=== PATIENT | female | born 1935 | race Caucasian/White ===

== ENCOUNTER 2017-08-31 07:41 | Day surgery (SDC) | payer MEDICARE ==
[2017-08-31] MEDS: NS 1,000 ML IV (08:10)
[2017-08-31] MEDS ORDERED: LIDOCAINE 2% INJ 100 MG/5 ML SDV (FOR ANES.) As Ordered (08:54)
[2017-08-31] MEDS ORDERED: PROPOFOL 200 MG/20 ML VIAL As Ordered (08:54)
== END 2017-08-31 09:41 | disposition home or self-care (01) ==
LOC: M OPP 07:41
DX: R13.10 Dysphagia, unspecified (principal); I10 Essential (primary) hypertension; E78.5 Hyperlipidemia, unspecified; R63.4 Abnormal weight loss; R06.02 Shortness of breath; M19.90 Unspecified osteoarthritis, unspecified site; Z87.09 Personal history of other diseases of the respiratory system; Z90.2 Acquired absence of lung [part of]; Z79.82 Long term (current) use of aspirin; Z79.899 Other long term (current) drug therapy; Z87.891 Personal history of nicotine dependence
CPT/HCPCS: 43249

== ENCOUNTER → 2017-09-02 | Outpatient (REF) ==
[2017-09-03 14:57] LABS: RUBELLA IgG QUALITATIVE IMMUNE (IMMUNE)
== END ==
LOC: M LAB 14:41
DX: Z00.00 Encounter for general adult medical examination without abnormal findings (principal)

== ENCOUNTER → 2018-09-12 | Outpatient (REF) | payer MEDICARE ==
[~2018-09-12] MED LIST: ATEN25TA PO; BACT800T5 PO; BAYE325T12 PO; CO-QCAP PO; LIPI20TA PO; LOSA25TA14 PO; VITACAP8 PO
[2018-09-12 13:07] LABS: BASO # 0.1 10^3/uL (0.0-0.2); BASO % 0.7 % (0.0-1.0); EOS # 0.4 10^3/uL (0.0-0.50); HEMATOCRIT 38.5 % (36.0-47.0); HEMOGLOBIN 12.4 g/dl (12.0-15.5); LYMPH # 2.5 10^3/uL (1.5-4.5); LYMPH % 33.5 % (24.0-44.0); MEAN CORPUSCULAR HGB CONC 32.2 g/dl (32.0-36.5); MEAN CORPUSCULAR VOLUME 93.2 fl (80.0-96.0); MONO # 0.6 10^3/uL (0.0-0.8); MONO % 8.4 % (0.0-5.0); NEUTROPHILS % 52.1 % (36.0-66.0); PLATELET COUNT, AUTOMATED 252 10^3/uL (150-450); RED BLOOD COUNT 4.13 10^6/uL (4.00-5.40); WHITE BLOOD COUNT 7.6 10^3/uL (4.0-10.0)
[2018-09-12 13:14] LABS: ALBUMIN 3.9 GM/DL (3.2-5.2); ALT/SGPT 22 U/L (12-78); BILIRUBIN,TOTAL 0.4 MG/DL (0.2-1.0); BLOOD UREA NITROGEN 15 MG/DL (7-18); CARBON DIOXIDE LEVEL 28 MEQ/L (21-32); CHLORIDE LEVEL 104 MEQ/L (98-107); CREATININE FOR GFR 0.74 MG/DL (0.55-1.30); GLOMERULAR FILTRATION RATE > 60.0 (>32); GLUCOSE, FASTING 123 MG/DL (70-100); POTASSIUM SERUM 4.3 MEQ/L (3.5-5.1); RHEUMATOID FACTOR QUANT < 10.0 IU/ML (<15.0); SODIUM LEVEL 139 MEQ/L (136-145); TOTAL PROTEIN 6.7 GM/DL (6.4-8.2)
[2018-09-12 13:20] LABS: VITAMIN B12 LEVEL 354 PG/ML (247-911)
[2018-09-12 13:21] LABS: FOLATE 13.1 NG/ML (>5.4)
[2018-09-12 14:18] LABS: ERYTHROCYTE SEDIMENTATION RATE 44 mm/hr (0-30)
[2018-09-13 14:13] LABS: ANTINUCLEAR ANTIBODIES DIRECT Negative (Negative)
[2018-09-15 10:13] LABS: VITAMIN E(ALPHA TOCOPHEROL) 20.7 mg/L (9.0-29.0); VITAMIN E(GAMMA TOCOPHEROL) 3.5 mg/L (0.5-4.9)
== END ==
LOC: M LABNEURO 09:12
PROVIDERS: ATTEND Psychiatry & Neurology Neurology
DX: R41.82 Altered mental status, unspecified (principal); R47.81 Slurred speech

== ENCOUNTER → 2018-11-16 | Outpatient (REF) | payer MEDICARE ==
[2018-11-16 13:32] LABS: WHITE BLOOD COUNT 10.6 10^3/uL (4.0-10.0)
[2018-11-16 13:33] LABS: BASO # 0.1 10^3/uL (0.0-0.2); BASO % 0.6 % (0.0-1.0); EOS # 0.1 10^3/uL (0.0-0.50); EOS % 1.3 % (0.0-3.0); HEMATOCRIT 38.3 % (36.0-47.0); HEMOGLOBIN 12.4 g/dl (12.0-15.5); LYMPH # 2.7 10^3/uL (1.5-4.5); LYMPH % 25.4 % (24.0-44.0); MEAN CORPUSCULAR HEMOGLOBIN 29.6 pg (27.0-33.0); MEAN CORPUSCULAR HGB CONC 32.4 g/dl (32.0-36.5); MEAN CORPUSCULAR VOLUME 91.4 fl (80.0-96.0); MONO # 1.1 10^3/uL (0.0-0.8); MONO % 10.3 % (0.0-5.0); NEUTROPHILS # 6.6 10^3/uL (1.8-7.7); NEUTROPHILS % 62.1 % (36.0-66.0); PLATELET COUNT, AUTOMATED 247 10^3/uL (150-450); RED BLOOD COUNT 4.19 10^6/uL (4.00-5.40)
[2018-11-16 13:44] LABS: C REACTIVE PROTEIN QUANTITATIV 3.05 MG/DL (0.00-0.30); RHEUMATOID FACTOR QUANT < 10.0 IU/ML (<15.0)
[2018-11-16 14:01] LABS: ERYTHROCYTE SEDIMENTATION RATE 52 mm/hr (0-30)
[2018-11-22 14:24] LABS: ANTINUCLEAR ANTIBODIES DIRECT Negative (Negative); HLA-B27 Negative (.)
== END ==
LOC: M LABDRAW1 13:14
PROVIDERS: ATTEND Physician Assistant
DX: M25.521 Pain in right elbow (principal)

== ENCOUNTER → 2018-11-22 | Outpatient (REF) | payer MEDICARE ==
[2018-11-22 17:22] LABS: BASO % 0.3 % (0.0-1.0); EOS # 0.2 10^3/uL (0.0-0.50); EOS % 1.8 % (0.0-3.0); HEMOGLOBIN 12.2 g/dl (12.0-15.5); LYMPH # 2.3 10^3/uL (1.5-4.5); LYMPH % 24.9 % (24.0-44.0); MEAN CORPUSCULAR HEMOGLOBIN 29.9 pg (27.0-33.0); MEAN CORPUSCULAR VOLUME 90.7 fl (80.0-96.0); MONO # 0.8 10^3/uL (0.0-0.8); MONO % 8.7 % (0.0-5.0); NEUTROPHILS # 5.9 10^3/uL (1.8-7.7); PLATELET COUNT, AUTOMATED 325 10^3/uL (150-450); RED BLOOD COUNT 4.08 10^6/uL (4.00-5.40); WHITE BLOOD COUNT 9.3 10^3/uL (4.0-10.0)
[2018-11-22 17:46] LABS: ERYTHROCYTE SEDIMENTATION RATE 74 mm/hr (0-30)
[2018-11-22 18:44] LABS: C REACTIVE PROTEIN QUANTITATIV 2.53 MG/DL (0.00-0.30); URIC ACID 5.4 MG/DL (2.6-6.0)
[2018-11-25 00:07] LABS: Lyme Disease IgG/IgM Antibodie <0.91 ISR (0.00-0.90); Lyme Disease IgM Ab Quantitati <0.80 index (0.00-0.79)
== END ==
LOC: M LABDRAW1 16:25
PROVIDERS: ATTEND Physician Assistant
DX: M19.021 Primary osteoarthritis, right elbow (principal)

== ENCOUNTER 2019-01-21 16:05 | Observation (INO) | payer MEDICARE ==
[~2019-01-21] VITALS: Ht 160 cm; Wt 58.5 kg
[2019-01-21] MEDS ORDERED: SULF1TAB93 PO (16:12)
[2019-01-21] MEDS ORDERED: LOSA50TA88 PO (16:12)
[2019-01-21 17:22] LABS: BASO % 0.3 % (0.0-1.0); EOS % 0.1 % (0.0-3.0); HEMATOCRIT 37.8 % (36.0-47.0); HEMOGLOBIN 12.7 g/dl (12.0-15.5); LYMPH # 0.4 10^3/uL (1.5-5.0); LYMPH % 3.3 % (24.0-44.0); MEAN CORPUSCULAR HEMOGLOBIN 30.9 pg (27.0-33.0); MEAN CORPUSCULAR HGB CONC 33.6 g/dl (32.0-36.5); MONO # 0.4 10^3/uL (0.0-0.8); MONO % 3.8 % (0.0-5.0); NEUTROPHILS # 10.6 10^3/uL (1.5-8.5); PLATELET COUNT, AUTOMATED 213 10^3/uL (150-450); RED BLOOD COUNT 4.11 10^6/uL (4.00-5.40); WHITE BLOOD COUNT 11.5 10^3/uL (4.0-10.0)
[2019-01-21] MEDS ORDERED: ONDANSETRON 4MG/2ML VIAL (J2405) IV ONE (17:30)
[2019-01-21] MEDS ORDERED: NS 500 ML IV ONE (17:30)
[2019-01-21 17:41] LABS: ALBUMIN 3.5 GM/DL (3.2-5.2); BILIRUBIN,DIRECT 0.1 MG/DL (0.0-0.2); BILIRUBIN,TOTAL 0.4 MG/DL (0.2-1.0); CALCIUM LEVEL 8.9 MG/DL (8.8-10.2); CREATININE FOR GFR 1.02 MG/DL (0.55-1.30); POTASSIUM SERUM 3.9 MEQ/L (3.5-5.1); TOTAL PROTEIN 7.1 GM/DL (6.4-8.2)
[2019-01-21] MEDS ORDERED: CIPROFLOXACIN 250 MG TAB PO SCH (18:00)
[2019-01-21] MEDS ORDERED: ACETAMINOPHEN 325 MG TAB PO ONE (19:15)
[2019-01-21] MEDS ORDERED: cefTRIAXone SOD 1 GM in D5W MINI-BAG PLUS 50 ML IV ONE (19:30)
--- NOTE | 2019-01-21 19:59 | HPEPDOC ---
[facility] Medical History & Physical Date of Admission Jan 21, 2019 Date of Service: Jan 21, 2019 Primary Care Physician: Kian Solomon MD Attending Physician: TERESE ALMODOVAR MD History and Physical TIME OF SERVICE: 810pm CHIEF COMPLAINT: Vomiting HISTORY OF PRESENT ILLNESS: This is an 83 old female with a past medical history of bladder suspension surgery. One week ago she was diagnosed with a UTI and got a 3 day course of ciprofloxacin, which she feels "didn't help". Yesterday she saw her PCP who started on Bactrim after taking the medication and her other medications last night she vomited. She continued to vomit this morning, so she came into the ED for evaluation. Other symptoms include nonradiating lower back "ache" which she reports is 4/10 in severity, fevers and chills despite taking Tylenol. This is a third episode of urinary tract infection since May; in May she was septic and admitted to the ICU at a hospital in [place]. Her discussion with the ED provider she received Ceftriaxone and IV fluids in the ED. REVIEW OF SYSTEMS: 12 point review of systems negative except as listed in HPI PAST MEDICAL/ SURGICAL HISTORY: Chronic hypertension. Dyslipidemia. Arthritis. Disposition discharged to ia. Status post pneumonectomy. Status post bladder suspension surgery. Status post tonsillectomy and adenoidectomy. SOCIAL HISTORY: Former smoker. Independent in ADLs and IADLs. Is a retired nurse FAMILY HISTORY: Hypertension Aortic valve repair Ablation to treat arrhythmia. Hyperthyroidism ALLERGIES: Please see below. HOME MEDICATIONS: Please see below. PHYSICAL EXAMINATION: VITAL SIGNS: Please see below. GENERAL APPEARANCE: Well-nourished, well-developed, not in apparent distress HEENT: Normocephalic, atraumatic, mucous members moist and pink CARDIOVASCULAR: Regular rate and rhythm. No murmurs, rubs or gallops. Radial and dorsalis pedis pulses are intact, there is no lower extremity edema LUNGS: Clear to auscultation bilaterally on room air ABDOMEN: Bowel sounds hypoactive. Abdomen is soft and nontender on palpation MUSCULOSKELETAL: There is no CVA tenderness, range of motion intact in all 4 extremities INTEGUMENT: NEUROLOGICAL: Cranial nerves II-12 are grossly intact. Speech is not dysarthric PSYCHIATRIC: Alert and oriented to person, place and time, able to understand and follow commands LABORATORY DATA: See below. IMAGING: See below MICROBIOLOGY: Please see below. ASSESSMENT: Ms. Rubio is an 83 year old female with a past medical history of bladder suspension surgery, hypertension and dyslipidemia who will be admitted for management of pyelonephritis. PLAN: 1. Pyelonephritis -Symptoms include back pain, vomiting, and fever -Temp >103 -lactic acid >1.9 -UA positive for leukocyte esterase and WBCs - GFR, Cr & BUN within normal limits Plan: admit to PCU / telemetry / received Ceftriaxone IV,depending on how the patient is doing the daytime team may switch to PO Cipro tomorrow / f/u blood cx, UA w Cx 2. Chronic Hypertension Plan: Continue home meds DVT Px w lovenox Disposition pending clinical course Vital Signs Vital Signs Date Time Temp Pulse Resp B/P (MAP) Pulse Ox O2 Delivery O2 Flow Rate FiO2 01/21/19 19:08 103.0 86 16 139/56 (83) 97 Room Air Laboratory Data Labs 24H Laboratory Tests 2 01/21/19 17:12: Immature Granulocyte % (Auto) 0.5, White Blood Count 11.5H, Red Blood Count 4.11, Hemoglobin 12.7, Hematocrit 37.8, Mean Corpuscular Volume 92.0, Mean Corpuscular Hemoglobin 30.9, Mean Corpuscular Hemoglobin Concent 33.6, Red Cell Distribution Width 14.1, Platelet Count 213, Neutrophils (%) (Auto) 92.0H, Lymphocytes (%) (Auto) 3.3L, Monocytes (%) (Auto) 3.8, Eosinophils (%) (Auto) 0.1, Basophils (%) (Auto) 0.3, Neutrophils # (Auto) 10.6H, Lymphocytes # (Auto) 0.4L, Monocytes # (Auto) 0.4, Eosinophils # (Auto) 0.0, Basophils # (Auto) 0.0, Nucleated Red Blood Cells % (auto) 0.0, Anion Gap 10, Glomerular Filtration Rate 55.0, Lactic Acid Level 1.9, Calcium Level 8.9, Aspartate Amino Transf (AST/SGOT) 15, Alanine Aminotransferase (ALT/SGPT) 14, Alkaline Phosphatase 63, Total Bilirubin 0.4, Direct Bilirubin 0.1, Total Protein 7.1, Albumin 3.5, Albumin/Globulin Ratio 0.97L 01/21/19 18:24: Urine Color YELLOW, Urine Appearance HAZY, Urine pH 5.0, Urine Specific [place] 1.014, Urine Protein 2+H, Urine Glucose (UA) NEGATIVE, Urine Ketones NEGATIVE, Urine Blood 1+H, Urine Nitrite NEGATIVE, Urine Bilirubin NEGATIVE, Urine Urobilinogen 0.2, Urine Leukocyte Esterase 2+H, Urine WBC (Auto) 53H, Urine RBC (Auto) 5H, Urine Hyaline Casts (Auto) 0, Urine Bacteria (Auto) 1+H, Urine Squamous Epithelial Cells 0, Urine Mucus (Auto) SMALL, Urine Sperm (Auto) CBC/BMP Laboratory Tests 01/21/19 17:12 Red Blood Count 4.11, Mean Corpuscular Volume 92.0, Mean Corpuscular Hemoglobin 30.9, Mean Corpuscular Hemoglobin Concent 33.6, Red Cell Distribution Width 14.1, Neutrophils (%) (Auto) 92.0 H, Lymphocytes (%) (Auto) 3.3 L, Monocytes (%) (Auto) 3.8, Eosinophils (%) (Auto) 0.1, Basophils (%) (Auto) 0.3, Neutrophils # (Auto) 10.6 H, Lymphocytes # (Auto) 0.4 L, Monocytes # (Auto) 0.4, Eosinophils # (Auto) 0.0, Basophils # (Auto) 0.0 Microbiology Microbiology 01/21/19 Blood Culture, Received Pending 01/21/19 Blood Culture, Received Pending 01/21/19 Urine Culture, Received Pending Home Medications Scheduled Atenolol (Atenolol) 25 Mg Tab, 25 MG PO QHS Atorvastatin Calcium (Lipitor) 20 Mg Tab, 20 MG PO DAILY Losartan Potassium (Losartan Potassium) 50 Mg Tablet, 50 MG PO QHS Sulfamethoxazole/Trimethoprim (Sulfamethoxazole-Tmp Ds Tablet) 1 Each Tablet, 1 TAB PO BID Ubidecarenone (Co Q10) 200 Mg Capsule, 200 MG PO DAILY Scheduled PRN Aspirin (Aspirin) 325 Mg Tab, 650 MG PO TID PRN for pain Allergies Coded Allergies: No Known Allergies (Unverified , 01/21/19) A-FIB/CHADSVASC A-FIB History Current/History of A-Fib/PAF?: No Current PO Anticoag Therapy: No TERESE ALMODOVAR MD Jan 21, 2019 19:59
[2019-01-21] MEDS ORDERED: COQ1200C3 PO (20:11)
[2019-01-21 21:00] VITALS: BP 105/51
[2019-01-21] MEDS ORDERED: ATENOLOL 25 MG TAB PO SCH (21:00)
[2019-01-21] MEDS ORDERED: LOSARTAN 50 MG TAB PO SCH (21:00)
[2019-01-21] MEDS ORDERED: CIPROFLOXACIN 500 MG TAB PO SCH (21:00)
[2019-01-21] MEDS ORDERED: ASPIRIN 325 MG TAB PO PRN (21:15)
[2019-01-21 22:43] VITALS: BP 105/51
[2019-01-21] MEDS: ENOXAPARIN 40 MG/0.4 ML SYRINGE (J1650) SC SCH (23:27)
[2019-01-21] MEDS: NS 1,000 ML IV SCH (23:27)
[2019-01-22] VITALS (10 sets, daily range): BP systolic 74–170; BP diastolic 38–72
[2019-01-22] MEDS: IBUPROFEN 400 MG TAB PO PRN ×2 (00:45→15:02)
[2019-01-22] MEDS ORDERED: cefTRIAXone SOD 1 GM in D5W MINI-BAG PLUS 50 ML IV SCH (08:00)
[2019-01-22] MEDS: ACETAMINOPHEN 650MG ER TAB (TYLENOL ARTHRITIS) PO SCH ×2 (08:24→20:42)
[2019-01-22 09:15] LABS: HEMATOCRIT 36.2 % (36.0-47.0); HEMOGLOBIN 11.7 g/dl (12.0-15.5); MEAN CORPUSCULAR HEMOGLOBIN 30.4 pg (27.0-33.0); MEAN CORPUSCULAR HGB CONC 32.3 g/dl (32.0-36.5); PLATELET COUNT, AUTOMATED 181 10^3/uL (150-450); RED BLOOD COUNT 3.85 10^6/uL (4.00-5.40)
[2019-01-22 09:37] LABS: CALCIUM LEVEL 7.9 MG/DL (8.8-10.2); CREATININE FOR GFR 1.41 MG/DL (0.55-1.30); GLOMERULAR FILTRATION RATE 37.8 (>32); POTASSIUM SERUM 3.8 MEQ/L (3.5-5.1)
--- NOTE | 2019-01-22 10:52 | IPNPDOC ---
Subjective Date Seen The patient was seen on 01/22/19. Subjective Chief Complaint/HPI Patient offers no new complaints at the present time, had chills last night but her symptoms today General: Reports: Chills; Denies: ROS Unobtainable, Night Sweats, Fatigue, Malaise, Normal Appetite, Other Symptoms Constitutional: Denies: Chills, Fever, Malaise, Night Sweats, Weakness, Fatigue, Weight Loss, Lethargy, Other Eyes: Denies: Pain, Vision change, Conjunctivae inflammation, Eyelid inflammation, Redness, Other ENT: Denies: Head Aches, Ear Pain, Dysphagia, Sinus Congestion, Post Nasal Drip, Sore Throat, Epistaxis, Other Symptoms Skin: Denies: Rash, Lesions, Jaundice, Bruising, Itching, Dry, Breakdown, Nail Changes, Other Pulmonary: Denies: Dyspnea, Cough, Pleuritic Chest Pain, Other Symptoms Cardiovascular: Denies: Chest Pain, Palpitations, Orthopnea, Paroxysmal Noc. Dyspnea, Edema, Lt Headedness, Other Symptoms Gastrointestinal: Denies: Nausea, Vomiting, Abdominal Pain, Diarrhea, Constipation, Melena, Hematochezia, Other Symptoms Neurological: Denies: Weakness, Numbness, Incoordination, Change in speech, Confusion, Seizures, Other Symptoms Objective Physical Examination General Exam: Positive: Alert, Cooperative Eye Exam: Positive: PERRLA, Conjunctiva & lids normal ENT Exam: Positive: Atraumatic, Mucous membr. moist/pink Neck Exam: Positive: Supple Chest Exam: Positive: Clear to auscultation, Normal air movement Abdomen Exam: Positive: Normal bowel sounds, Soft Extremity Exam: Positive: Normal pulses Skin Exam: Positive: Nl turgor and temperature Assessment /Plan Problems (1) UTI (urinary tract infection) Status: Acute Problem Text: 83 years old lady admitted with the diagnosis of UTI Continue IV fluids at 70 mL per hour Continue Cipro as per orders Urine cultures pending Activity as tolerated DC telemetry Out of bed DVT prophylaxis with Lovenox (2) HTN (hypertension) Problem Text: Hold antihypertensive meds secondary to low blood pressure Will restart meds, once patient is clinically stable Plan/VTE VTE Prophylaxis Ordered?: Yes VS, I&O, 24H, Fishbone Vital Signs/I&O Vital Signs Date Time Temp Pulse Resp B/P (MAP) Pulse Ox O2 Delivery O2 Flow Rate FiO2 01/22/19 08:00 99.6 57 16 138/61 (86) 97 01/21/19 22:25 Room Air I&O- Last 24 Hours up to 6 AM 01/22/19 05:59 Intake Total 600 ml Balance 600 ml Laboratory Data 24H LABS Laboratory Tests 2 01/21/19 17:12: Immature Granulocyte % (Auto) 0.5, White Blood Count 11.5H, Red Blood Count 4.11, Hemoglobin 12.7, Hematocrit 37.8, Mean Corpuscular Volume 92.0, Mean Corpuscular Hemoglobin 30.9, Mean Corpuscular Hemoglobin Concent 33.6, Red Cell Distribution Width 14.1, Platelet Count 213, Neutrophils (%) (Auto) 92.0H, Lymphocytes (%) (Auto) 3.3L, Monocytes (%) (Auto) 3.8, Eosinophils (%) (Auto) 0.1, Basophils (%) (Auto) 0.3, Neutrophils # (Auto) 10.6H, Lymphocytes # (Auto) 0.4L, Monocytes # (Auto) 0.4, Eosinophils # (Auto) 0.0, Basophils # (Auto) 0.0, Nucleated Red Blood Cells % (auto) 0.0, Anion Gap 10, Glomerular Filtration Rate 55.0, Lactic Acid Level 1.9, Calcium Level 8.9, Aspartate Amino Transf (AST/ SGOT) 15, Alanine Aminotransferase (ALT/SGPT) 14, Alkaline Phosphatase 63, Total Bilirubin 0.4, Direct Bilirubin 0.1, Total Protein 7.1, Albumin 3.5, Albumin/Globulin Ratio 0.97L 01/21/19 18:24: Urine Color YELLOW, Urine Appearance HAZY, Urine pH 5.0, Urine Specific [place] 1.014, Urine Protein 2+H, Urine Glucose (UA) NEGATIVE, Urine Ketones NEGATIVE, Urine Blood 1+H, Urine Nitrite NEGATIVE, Urine Bilirubin NEGATIVE, Urine Urobilinogen 0.2, Urine Leukocyte Esterase 2+H, Urine WBC (Auto) 53H, Urine RBC (Auto) 5H, Urine Hyaline Casts (Auto) 0, Urine Bacteria (Auto) 1+H, Urine Squamous Epithelial Cells 0, Urine Mucus (Auto) SMALL, Urine Sperm (Auto) 01/22/19 05:45: Bedside Glucose (Misc Panel) 135H 01/22/19 08:42: Nucleated Red Blood Cells % (auto) 0.0, Anion Gap 13, Glomerular Filtration Rate 37.8, Calcium Level 7.9L, Blood Urea Nitrogen 25#H, Creatinine 1.41H, Sodium Level 139, Potassium Level 3.8, Chloride Level 104, Carbon Dioxide Level 22 CBC/BMP Laboratory Tests 01/21/19 17:12 Red Blood Count 4.11, Mean Corpuscular Volume 92.0, Mean Corpuscular Hemoglobin 30.9, Mean Corpuscular Hemoglobin Concent 33.6, Red Cell Distribution Width 14.1, Neutrophils (%) (Auto) 92.0 H, Lymphocytes (%) (Auto) 3.3 L, Monocytes (%) (Auto) 3.8, Eosinophils (%) (Auto) 0.1, Basophils (%) (Auto) 0.3, Neutrophils # (Auto) 10.6 H, Lymphocytes # (Auto) 0.4 L, Monocytes # (Auto) 0.4, Eosinophils # (Auto) 0.0, Basophils # (Auto) 0.0 01/22/19 08:42 Red Blood Count 3.85 L, Mean Corpuscular Volume 94.0, Mean Corpuscular Hemoglobin 30.4, Mean Corpuscular Hemoglobin Concent 32.3, Red Cell Distribution Width 14.5, Calcium Level 7.9 L Microbiology Microbiology 01/21/19 Blood Culture, Received Pending 01/21/19 Blood Culture, Received Pending 01/21/19 Urine Culture, Received Pending MELISSA SANCHEZ MD Jan 22, 2019 10:52
[2019-01-22] MEDS: NS 1,000 ML IV SCH (13:11)
[2019-01-22] MEDS: OMEPRAZOLE 20 MG CAP PO SCH (18:09)
[2019-01-22] MEDS: ENOXAPARIN 40 MG/0.4 ML SYRINGE (J1650) SC SCH (20:45)
[2019-01-23] MEDS: NS 1,000 ML IV SCH (01:51)
[2019-01-23 03:00] VITALS: BP 111/72
[2019-01-23] MEDS: IBUPROFEN 400 MG TAB PO PRN (03:01)
[2019-01-23 04:00] VITALS: BP 111/53
[2019-01-23 05:49] LABS: BASO % 0.2 % (0.0-1.0); EOS # 0.1 10^3/uL (0.0-0.5); EOS % 2.1 % (0.0-3.0); HEMATOCRIT 33.5 % (36.0-47.0); HEMOGLOBIN 10.9 g/dl (12.0-15.5); LYMPH # 0.4 10^3/uL (1.5-5.0); LYMPH % 7.7 % (24.0-44.0); MEAN CORPUSCULAR HEMOGLOBIN 30.4 pg (27.0-33.0); MEAN CORPUSCULAR HGB CONC 32.5 g/dl (32.0-36.5); MEAN CORPUSCULAR VOLUME 93.3 fl (80.0-96.0); MONO # 0.2 10^3/uL (0.0-0.8); MONO % 4.4 % (0.0-5.0); NEUTROPHILS # 4.4 10^3/uL (1.5-8.5); NEUTROPHILS % 84.8 % (36.0-66.0); PLATELET COUNT, AUTOMATED 141 10^3/uL (150-450); RED BLOOD COUNT 3.59 10^6/uL (4.00-5.40); WHITE BLOOD COUNT 5.2 10^3/uL (4.0-10.0)
[2019-01-23 06:18] LABS: ALBUMIN 2.5 GM/DL (3.2-5.2); BILIRUBIN,TOTAL 0.4 MG/DL (0.2-1.0); CALCIUM LEVEL 7.9 MG/DL (8.8-10.2); CREATININE FOR GFR 1.06 MG/DL (0.55-1.30); GLOMERULAR FILTRATION RATE 52.6 (>32); POTASSIUM SERUM 3.4 MEQ/L (3.5-5.1); TOTAL PROTEIN 5.7 GM/DL (6.4-8.2)
[2019-01-23] MEDS ORDERED: POTASSIUM CHLORIDE 10 MEQ SR TABLET PO ONE (07:30)
[2019-01-23 08:00] VITALS: BP 125/60
[2019-01-23] MEDS ORDERED: cefTRIAXone SOD 1 GM in D5W MINI-BAG PLUS 50 ML IV SCH (08:00)
[2019-01-23] MEDS: ACETAMINOPHEN 650MG ER TAB (TYLENOL ARTHRITIS) PO SCH (08:09)
[2019-01-23] MEDS: OMEPRAZOLE 20 MG CAP PO SCH (08:09)
[2019-01-23] MEDS ORDERED: OMEP-218 PO (09:55)
[2019-01-23] MEDS ORDERED: CEFU1TAB20 PO (09:55)
--- NOTE | 2019-01-23 10:00 | DS.PDOC ---
Discharge Summary General Date of Admission Jan 21, 2019 at 16:06 Date of Discharge 01/23/19 Attending Physician: MELISSA SANCHEZ MD Discharge Summary PROCEDURES PERFORMED DURING STAY: None. ADMITTING DIAGNOSES: 1. UTI. DISCHARGE DIAGNOSES: 1. UTI, hypokalemia. COMPLICATIONS/CHIEF COMPLAINT: Sepsis/Uti. HISTORY OF PRESENT ILLNESS: This is an 83 old female with a past medical history of bladder suspension surgery. One week ago she was diagnosed with a UTI and got a 3 day course of ciprofloxacin, which she feels "didn't help". Yesterday she saw her PCP who started on Bactrim after taking the medication and her other medications last night she vomited. She continued to vomit this morning, so she came into the ED for evaluation. Other symptoms include nonradiating lower back "ache" which she reports is 4/10 in severity, fevers and chills despite taking Tylenol. This is a third episode of urinary tract infection since May; in May she was septic and admitted to the ICU at a hospital in [place]. Her discussion with the ED provider she received Ceftriaxone and IV fluids in the ED.. HOSPITAL COURSE: Patient was admitted diagnosis of UTI. Started on IV Rocephin. Patient remained afebrile, asymptomatic, tolerating oral feeding very well. WBC count is essentially within normal limit, now patient's vital signs are stable and can be discharged home on a by mouth cephalexin and follow with PCP and urology Dr. Young as an outpatient in 7-10 days for recurrent UTI. Hypokalemia was also was corrected with by mouth supplementation Continue all ho me medications. DISCHARGE MEDICATIONS: Please see below. ALLERGIES: Please see below. PHYSICAL EXAMINATION ON DISCHARGE: VITAL SIGNS: Please see below. GENERAL: Within normal limits HEENT: PERRLA NECK: Supple CARDIOVASCULAR EXAMINATION: S1, S2, regular RESPIRATORY EXAMINATION: Clear to A&P ABDOMINAL EXAMINATION: , Soft, nontender, bowel sound present EXTREMITIES: no clubbing, cyanosis, edema SKIN: Within normal limits NEUROLOGICAL EXAMINATION: Within normal limits PSYCHIATRIC EXAMINATION: Within normal limits LABORATORY DATA: Please see below. IMAGING: None PROGNOSIS: Good ACTIVITY: As tolerated. DIET: As tolerated DISCHARGE PLAN: Follow with PCP and urology in 7-10 days DISPOSITION: .home DISCHARGE INSTRUCTIONS: 1. As per discharge instruction. ITEMS TO FOLLOWUP ON ON OUTPATIENT: 1. As above. DISCHARGE CONDITION: Stable. TIME SPENT ON DISCHARGE: minutes. Vital Signs/I&Os Vital Signs Date Time Temp Pulse Resp B/P (MAP) Pulse Ox O2 Delivery O2 Flow Rate FiO2 01/23/19 08:00 97.2 86 17 125/60 (81) 98 01/21/19 22:25 Room Air I&O- Last 24 Hours up to 6 AM 01/23/19 05:59 Intake Total 940 ml Output Total 0 ml Balance 940 ml Laboratory Data Labs 24H Laboratory Tests 2 01/23/19 03:19: Bedside Glucose (Misc Panel) 111H 01/23/19 05:36: Immature Granulocyte % (Auto) 0.8, White Blood Count 5.2, Red Blood Count 3.59L, Hemoglobin 10.9L, Hematocrit 33.5L, Mean Corpuscular Volume 93.3, Mean Corpuscular Hemoglobin 30.4, Mean Corpuscular Hemoglobin Concent 32.5, Red Cell Distribution Width 14.5, Platelet Count 141L, Neutrophils (%) (Auto) 84.8H, Lymphocytes (%) (Auto) 7.7L, Monocytes (%) (Auto) 4.4, Eosinophils (%) (Auto) 2.1, Basophils (%) (Auto) 0.2, Neutrophils # (Auto) 4.4, Lymphocytes # (Auto) 0.4L, Monocytes # (Auto) 0.2, Eosinophils # (Auto) 0.1, Basophils # (Auto) 0.0, Nucleated Red Blood Cells % (auto) 0.0, Anion Gap 9, Glomerular Filtration Rate 52.6, Blood Urea Nitrogen 31H, Creatinine 1.06, Sodium Level 143, Potassium Level 3.4L, Chloride Level 113H, Carbon Dioxide Level 21, Calcium Level 7.9L, Aspartate Amino Transf (AST/SGOT) 41H, Alanine Aminotransferase (ALT/SGPT) 26, Alkaline Phosphatase 86, Total Bilirubin 0.4, Total Protein 5.7L, Albumin 2.5#L, Albumin/Globulin Ratio 0.78L CBC/BMP Laboratory Tests 01/23/19 05:36 Red Blood Count 3.59 L, Mean Corpuscular Volume 93.3, Mean Corpuscular Hemoglobin 30.4, Mean Corpuscular Hemoglobin Concent 32.5, Red Cell Distribution Width 14.5, Neutrophils (%) (Auto) 84.8 H, Lymphocytes (%) (Auto) 7.7 L, Monocytes (%) (Auto) 4.4, Eosinophils (%) (Auto) 2.1, Basophils (%) (Auto) 0.2, Neutrophils # (Auto) 4.4, Lymphocytes # (Auto) 0.4 L, Monocytes # (Auto) 0.2, Eosinophils # (Auto) 0.1, Basophils # (Auto) 0.0, Calcium Level 7.9 L, Aspartate Amino Transf (AST/SGOT) 41 H, Alanine Aminotransferase (ALT/SGPT) 26, Alkaline Phosphatase 86, Total Bilirubin 0.4, Total Protein 5.7 L, Albumin 2.5 #L FSBS Laboratory Tests Test 01/23/19 03:19 Range/Units Bedside Glucose (Misc Panel) 111 83-110 MG/DL Microbiology Microbiology 01/21/19 Blood Culture - Preliminary, Resulted No growth after 24 hours . All specim... 01/21/19 Blood Culture - Preliminary, Resulted No growth after 24 hours . All specim... 01/21/19 Urine Culture - Final, Complete Discharge Medications Scheduled Atenolol (Atenolol) 25 Mg Tab, 25 MG PO QHS, (Reported) Atorvastatin Calcium (Lipitor) 20 Mg Tab, 20 MG PO DAILY, (Reported) Cefuroxime Axetil (Cefuroxime) 250 Mg Tablet, 250 MG PO BID Losartan Potassium (Losartan Potassium) 50 Mg Tablet, 50 MG PO QHS, (Reported) Omeprazole (Omeprazole) 20 Mg Capsule.dr, 40 MG PO DAILY Ubidecarenone (Co Q10) 200 Mg Capsule, 200 MG PO DAILY, (Reported) Scheduled PRN Aspirin (Aspirin) 325 Mg Tab, 650 MG PO TID PRN for pain, (Reported) Allergies Coded Allergies: No Known Allergies (Unverified , 01/21/19) MELISSA SANCHEZ MD Jan 23, 2019 10:00
== END 2019-01-23 12:07 | disposition home or self-care (01) ==
LOC: M ED 16:05 → M ED INP 16:06 → M PED 19:55 → M ED INP 21:43 → M PCU 22:38
PROVIDERS: ADMIT Internal Medicine; ATTEND Internal Medicine
DX: N39.0 Urinary tract infection, site not specified (principal); E87.6 Hypokalemia; I10 Essential (primary) hypertension; E78.49 Other hyperlipidemia; Z79.899 Other long term (current) drug therapy; Z87.891 Personal history of nicotine dependence
CPT/HCPCS: 36415; 80048; 80053; 80076; 81001; 83605; 85025; 85027; 87040; 87086; 99285; G0378; J0696; J1650; J2405

== ENCOUNTER 2019-01-27 09:01 | Inpatient (IN) | payer MEDICARE ==
[~2019-01-27] VITALS: Ht 160 cm; Wt 56.8 kg
[~2019-01-27 09:01] MED LIST changes: -ACET1TAB16 PO; -AMLO10TA5 PO; -OMEP-221 PO; -PT COMMENTS; -SENN-52 PO
[2019-01-27] MEDS ORDERED: SULF1TAB93 PO (09:15)
[2019-01-27] MEDS ORDERED: ACET1TAB16 PO (09:15)
[2019-01-27] MEDS ORDERED: MORPHINE 2 MG/ML 1ML SYRINGE (J2270) IV ONE ×2 (09:45→11:30)
[2019-01-27] MEDS ORDERED: ONDANSETRON 4MG/2ML VIAL (J2405) IV ONE (09:45)
[2019-01-27 10:44] LABS: BASO % 0.2 % (0.0-1.0); EOS # 0.2 10^3/uL (0.0-0.5); EOS % 2.5 % (0.0-3.0); HEMATOCRIT 34.5 % (36.0-47.0); HEMOGLOBIN 11.7 g/dl (12.0-15.5); LYMPH % 10.4 % (24.0-44.0); MEAN CORPUSCULAR HEMOGLOBIN 30.5 pg (27.0-33.0); MEAN CORPUSCULAR HGB CONC 33.9 g/dl (32.0-36.5); MEAN CORPUSCULAR VOLUME 90.1 fl (80.0-96.0); MONO # 0.6 10^3/uL (0.0-0.8); MONO % 5.7 % (0.0-5.0); NEUTROPHILS # 7.7 10^3/uL (1.5-8.5); NEUTROPHILS % 80.5 % (36.0-66.0); PLATELET COUNT, AUTOMATED 264 10^3/uL (150-450); RED BLOOD COUNT 3.83 10^6/uL (4.00-5.40); WHITE BLOOD COUNT 9.6 10^3/uL (4.0-10.0)
[2019-01-27 11:22] LABS: ALBUMIN 3.4 GM/DL (3.2-5.2); ALT/SGPT 30 U/L (12-78); BILIRUBIN,DIRECT < 0.1 MG/DL (0.0-0.2); BILIRUBIN,TOTAL 0.3 MG/DL (0.2-1.0); BLOOD UREA NITROGEN 12 MG/DL (7-18); CALCIUM LEVEL 9.1 MG/DL (8.8-10.2); CARBON DIOXIDE LEVEL 25 MEQ/L (21-32); CHLORIDE LEVEL 105 MEQ/L (98-107); CPK CREATINE PHOSPHOKINASE 87 U/L (26-192); CREATININE FOR GFR 0.77 MG/DL (0.55-1.30); GLOMERULAR FILTRATION RATE > 60.0 (>32); GLUCOSE, FASTING 192 MG/DL (70-100); LIPASE 315 U/L (73-393); POTASSIUM SERUM 4.1 MEQ/L (3.5-5.1); SODIUM LEVEL 141 MEQ/L (136-145); TOTAL PROTEIN 6.5 GM/DL (6.4-8.2); TROPONIN I < 0.02 NG/ML (< 0.10)
[2019-01-27] MEDS ORDERED: ISOVUE-370 76% 100ML VIAL (Q9967) As Ordered ONE (11:30)
[2019-01-27] MEDS: NS 1,000 ML IV SCH ×2 (11:34→18:51)
--- NOTE | 2019-01-27 12:05 | REP ---
CHEST, TWO VIEWS: COMPARISON: 07/05/2012 There is no acute infiltrate. There is mild bibasilar scaring and left apical pleural thickening. Metallic clips are seen in the left hilum. The heart is not enlarged. There is calcification and tortuosity of the thoracic aorta. There is are degenerative changes of the spine. IMPRESSION: Stable chronic changes. No acute infiltrate. Electronically Signed by Vince Willis MD 01/27/2019 12:21 P
--- NOTE | 2019-01-27 12:33 | REP ---
CT ANGIOGRAPHY OF THE ABDOMEN AND PELVIS WITH IV CONTRAST: HISTORY: Workup left flank pain, UPJ. Rule out vascular crossing compressing urinary collecting system components. No comparison abdominal imaging. CT CONTRAST DOSE: 100 mL of intravenous Isovue 370. CT FINDINGS: Preliminary digital director of scout work radiograph is unremarkable. Normal bowel gas pattern is seen. The lung bases are clear with emphysematous changes in the lower lobes bilaterally. No pleural effusion is seen. The liver and spleen are normal in size, homogeneous in texture. There is a small accessory splenule. No adrenal lesion is seen on either side. Gallbladder is somewhat dilated without evidence of stone or mural thickening. It measures up to 10.3 cm in greatest dimension. The intra and extrahepatic bile ducts are mildly prominent as well. Common bile duct measures 12 mm in greatest anteroposterior dimension. No pancreatic mass or a choledocholith is visible by CT imaging. No pancreatic cyst is seen. The pancreatic duct is not dilated. There is pancolonic diverticulosis without CT evidence of diverticulitis. The uterus is surgically absent. Urinary bladder is unremarkable. A normal appendix is seen in the right mid abdomen. Small and large bowel loops are normal in caliber. No pelvic mass or adenopathy is seen. There is moderate hydronephrosis of the left kidney with intrarenal hydronephrosis and dilation of the renal pelvis. The renal pelvis and ureteropelvic junction have a rounded appearance without evidence of stone or mass. 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 The renal arteries describe a normal course and bifurcation pattern into the left kidney without evidence of vascular compression at the ureteropelvic junction. Normal caliber aorta is seen. There is heavy vascular calcification in the aorta and diffuse aortoiliac narrowing is seen due to calcific plaquing. No high-grade stenosis is evident. There is atherosclerotic calcific plaquing at the origin of both the celiac and superior mesenteric axes, however no high-grade stenosis is seen. The inferior mesenteric artery is patent. Singular renal arteries are seen. There is evidence of high-grade stenosis at the origin of the right renal artery best seen on axial images. IMPRESSION: 1. 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 No evidence of vascular compression of the renal collecting system or ureteropelvic junction. No stone disease seen. 2. Dilated gallbladder and mildly dilated intra and extrahepatic bile ducts, CBD 12 mm. Etiology uncertain. No stone or mass seen by CT. 3. Diffuse heavy vascular calcification in the aorta and its branches. Significant stenosis at the origin of the right renal artery is seen. Diffuse aortoiliac narrowing due to calcific plaquing. 4. Pancolonic diverticulosis. Electronically Signed by Vincent Mendoza MD 01/27/2019 02:40 P
[2019-01-27] MEDS ORDERED: LIDOCAINE 5% (LIDODERM) PATCH TD ONE (13:15)
[2019-01-27] MEDS ORDERED: ACETAMINOPHEN TAB 650MG DOSE (2X325MG) PO ONE (14:30)
[2019-01-27] MEDS ORDERED: CYCLOBENZAPRINE 5MG TABLET PO ONE (14:30)
[2019-01-27] MEDS ORDERED: OMEP-221 PO (15:50)
[2019-01-27] MEDS ORDERED: PT COMMENTS (15:50)
[2019-01-27] MEDS ORDERED: MORPHINE 4 MG/ML 1ML VIAL/SYRINGE (J2270) IV PRN (16:00)
--- NOTE | 2019-01-27 16:21 | HPE ---
DATE OF ADMISSION: 01/27/2019 PRIMARY CARE PROVIDER: Dr. Kian Solomon CHIEF COMPLAINT: Intractable left flank pain with left radiculopathy and left extensor hallucis longus weakness. 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 Her urine cultures were negative, but she was diagnosed with pyelonephritis and discharged on Keflex. She has been having increasing left flank pain radiating to the left buttock and down to the back of the left knee for several weeks. She apparently had a urinary tract infection (UTI) and had sepsis, for which she was admitted to the intensive care unit (ICU) in [place] earlier this year. She saw her primary care provider who referred her to the urologist in [place], who wanted a MRA done today, but this could not be performed because she was so uncomfortable. She came to the emergency room. PAST MEDICAL HISTORY: 1. Hypertension. 2. Hyperlipidemia. 3. Arthritic low back pain. X-rays of lumbosacral spine that showed grade 1 spondylolisthesis of L3 on x-ray done in 01/2016. She reportedly had MRI of the lumbosacral spine done several years ago through Dr. Solomon's office, I do not have access to that. 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 No vascular compression of the renal collecting system. No stone present. She did have a dilated gallbladder and mildly dilated intra and extrahepatic bile duct. The common bile duct is 12 mm. Heavy calcification of the aorta and significant stenosis at the origin of the right renal artery, diffuse aortoiliac narrowing and pancolonic diverticulosis. Again, the UPJ obstruction appears to be congenital. There is no bowel or bladder dysfunction. No fever or chills. No frequency, urgency or dysuria. MEDICATIONS: - Tylenol with codeine as needed - aspirin 326 mg three times a day as needed - atenolol 25 mg - atorvastatin 20 mg - losartan 50 mg - omeprazole 40 mg daily - Bactrim every 12 hours - coenzyme Q10 ALLERGIES: None known. 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 No smoking. No alcohol. PHYSICAL EXAMINATION: Vital signs per flow sheet. She is alert and conversant. Speech is a little slurred from morphine but she recognized me immediately. No distress. HEENT: Unremarkable. LUNGS: Clear. HEART: Without murmur. ABDOMEN: Soft, nontender. No masses. EXTREMITIES: Straight leg raise positive on the left. Low talkback host to palpate. Left low back and tender left sciatic notch. Her external hallucis longus EHL is weak on the left compared to the right. Reflexes symmetric. Speech is normal. IMPRESSION: 1. Intractable flank pain. I think that this is discogenic and not urologic. The CT angiogram did not show any vascular compromise and the UPJ obstruction appears to be congenital. I have ordered a stat MRI of her lumbosacral spine and get a sed rate and ESR. Analgesia has been ordered. I also ordered some IV fluids as she had received IV contrast today. 2. Hypertension. Continue losartan. Keep an eye on renal function. 3. Hyperlipidemia. Continue atorvastatin. 4. Recent hospitalization for presumed urinary tract infection (UTI). Culture was negative. I think that this episode is not urinary and so I am not giving her an antibiotic for this, which as an infectious control nurse she appreciates. 5. Deep vein thrombosis (DVT) prophylaxis with Lovenox has been ordered.
[2019-01-27 18:20] VITALS: BP 164/74
[2019-01-27] MEDS: KETOROLAC 30 MG/ML VIAL (J1885) IV SCH (18:56)
--- NOTE | 2019-01-27 19:19 | REPVR ---
EXAM: MR Lumbar Spine Without Contrast. EXAM DATE/TIME: 01/27/2019 3:46 PM CLINICAL HISTORY: 83 years old, female; Pain; Lumbago with sciatica; Left; Additional info: Left radiculopathy, ehl weakness TECHNIQUE: Imaging protocol: Multiplanar magnetic resonance images of the lumbar spine without intravenous contrast. COMPARISON: CR SPINE LS COMPLETE 02/06/2016 5:03 PM FINDINGS: Vertebrae: There is no vertebral fracture. Vertebral bodies maintain their height. STIR images demonstrate no evidence of marrow edema or marrow infiltrating lesion. Spinal cord: The lower thoracic cord, conus and cauda equina are normal. L1-L2: There is a ventral osteophyte. There is a mild circumferential disc bulge. There is facet arthropathy with mild bilateral foraminal stenosis. L2-L3: Mild disc bulge. There is facet arthropathy with mild left and moderate right foraminal stenosis. No central stenosis. L3-L4: There is a mild disc bulge. There is advanced facet arthropathy with a grade 1 degenerative spondylolisthesis. There is hypertrophy of the ligamentum flavum. These factors result in moderate to severe central spinal stenosis. There is moderate foraminal stenosis. There is severe lateral recess stenosis. L4-L5: There is disc dehydration and disc space narrowing with a mild disc bulge. There is facet arthropathy with moderate right and more severe left foraminal and lateral recess stenosis. There is no central stenosis. L5-S1: Minimal disc bulge. Facet arthropathy with moderate right and more severe left foraminal and lateral recess stenosis. Kidneys and ureters: There is hydronephrosis noted on the left. This is incompletely visualized and etiology is not clear. This was reported on recent examination of the abdomen. Soft tissues: There is no paraspinous or intraspinal mass, hemorrhage or fluid collection. IMPRESSION: 1. No fracture. 2. Multilevel degenerative findings resulting in [id number] central stenosis at L3-L4. Additional degenerative findings. Electronically signed by: Wood Banuelos On 01/27/2019 19:19:22 PM
[2019-01-27] MEDS ORDERED: **NOTE PATIENT COMMENT** MISC XX SCH (21:00)
[2019-01-27 22:00] VITALS: BP 162/74
[2019-01-28] MEDS: NS 1,000 ML IV SCH ×2 (03:00→11:07)
[2019-01-28] MEDS: KETOROLAC 30 MG/ML VIAL (J1885) IV SCH ×3 (03:53→19:45)
--- NOTE | 2019-01-28 05:45 | ECGEPIP ---
[facility] - ED Test Date: 2019-01-27 Pat Name: AGUILAR MORENO Department: Room: - Gender: Female Installation Specialist: PMaP : [id number] Requested By: MITCHEL Mahmood PA-C Order Number: [id number] Reading MD: Milind Arriaga Measurements Intervals Stow Rate: 94 P: 59 HI: 134 QRS: 64 QRSD: 87 T: 44 QT: 380 QTc: 476 Interpretive Statements SINUS RHYTHM WITH OCCASIONAL VENTRICULAR PREMATURE COMPLEXES NONSPECIFIC ST & T-WAVE ABNORMALITY NO PRIORS FOR COMPARISON Electronically Signed on 01-28-2019 5:45:34 EDT by Milind Arriaga
[2019-01-28 06:00] VITALS: BP 150/78
[2019-01-28 06:41] LABS: BASO % 0.2 % (0.0-1.0); EOS # 0.2 10^3/uL (0.0-0.5); EOS % 1.4 % (0.0-3.0); HEMATOCRIT 29.5 % (36.0-47.0); LYMPH # 1.2 10^3/uL (1.5-5.0); LYMPH % 10.5 % (24.0-44.0); MEAN CORPUSCULAR HEMOGLOBIN 31.1 pg (27.0-33.0); MEAN CORPUSCULAR HGB CONC 33.9 g/dl (32.0-36.5); MEAN CORPUSCULAR VOLUME 91.6 fl (80.0-96.0); MONO # 0.8 10^3/uL (0.0-0.8); MONO % 6.9 % (0.0-5.0); NEUTROPHILS # 9.3 10^3/uL (1.5-8.5); NEUTROPHILS % 80.1 % (36.0-66.0); PLATELET COUNT, AUTOMATED 269 10^3/uL (150-450); RED BLOOD COUNT 3.22 10^6/uL (4.00-5.40); WHITE BLOOD COUNT 11.6 10^3/uL (4.0-10.0)
[2019-01-28 06:58] LABS: BLOOD UREA NITROGEN 9 MG/DL (7-18); CALCIUM LEVEL 7.9 MG/DL (8.8-10.2); CARBON DIOXIDE LEVEL 26 MEQ/L (21-32); CHLORIDE LEVEL 108 MEQ/L (98-107); CREATININE FOR GFR 0.72 MG/DL (0.55-1.30); GLOMERULAR FILTRATION RATE > 60.0 (>32); GLUCOSE, FASTING 141 MG/DL (70-100); POTASSIUM SERUM 3.4 MEQ/L (3.5-5.1); SODIUM LEVEL 141 MEQ/L (136-145)
[2019-01-28] MEDS: LOSARTAN 50 MG TAB PO SCH ×2 (08:23→11:57)
[2019-01-28] MEDS: PANTOPRAZOLE 20 MG TAB PO SCH ×2 (08:23→11:57)
[2019-01-28] MEDS: ATENOLOL 25 MG TAB PO SCH ×2 (08:23→11:59)
[2019-01-28] MEDS: ATORVASTATIN 20 MG TAB PO SCH ×2 (08:23→11:57)
[2019-01-28] MEDS: ENOXAPARIN 40 MG/0.4 ML SYRINGE (J1650) SC SCH (08:24)
[2019-01-28] MEDS ORDERED: BACTRIM 160MG/800MG DS TAB PO SCH (09:00)
[2019-01-28 10:00] VITALS: BP 135/62
[2019-01-28] MEDS ORDERED: SENOKOT S TAB PO PRN (12:00)
[2019-01-28] MEDS ORDERED: MIRALAX *UNIT DOSE* 17GM PACKET PO PRN (12:00)
[2019-01-28 14:00] VITALS: BP 147/72
[2019-01-28] MEDS: ONDANSETRON 4MG/2ML VIAL (J2405) IV PRN (16:17)
[2019-01-28 18:00] VITALS: BP 138/68
[2019-01-28 22:00] VITALS: BP 161/76
[2019-01-28] MEDS: KETOROLAC 30 MG/ML VIAL (J1885) IV PRN (22:39)
[2019-01-29 02:00] VITALS: BP 161/77
[2019-01-29 06:00] VITALS: BP 154/77
[2019-01-29 06:30] LABS: HEMOGLOBIN 10.9 g/dl (12.0-15.5); MEAN CORPUSCULAR HEMOGLOBIN 30.4 pg (27.0-33.0); MEAN CORPUSCULAR VOLUME 91.9 fl (80.0-96.0); PLATELET COUNT, AUTOMATED 364 10^3/uL (150-450); RED BLOOD COUNT 3.59 10^6/uL (4.00-5.40); WHITE BLOOD COUNT 17.5 10^3/uL (4.0-10.0)
[2019-01-29 06:55] LABS: BLOOD UREA NITROGEN 13 MG/DL (7-18); CALCIUM LEVEL 8.4 MG/DL (8.8-10.2); CARBON DIOXIDE LEVEL 21 MEQ/L (21-32); CHLORIDE LEVEL 105 MEQ/L (98-107); CREATININE FOR GFR 0.69 MG/DL (0.55-1.30); GLOMERULAR FILTRATION RATE > 60.0 (>32); GLUCOSE, FASTING 139 MG/DL (70-100); POTASSIUM SERUM 3.6 MEQ/L (3.5-5.1); SODIUM LEVEL 137 MEQ/L (136-145)
--- NOTE | 2019-01-29 07:45 | IPN ---
DATE: 01/28/2019 Kate was admitted with left flank pain that radiates to her left buttock down her left leg. She has extensor hallucis longus weakness consistent with a nerve impingement. This was confirmed by MRI scan which showed degenerative disc disease at multiple levels, specifically there is severe central spinal stenosis at L3-L4 with severe lateral recess stenosis and left greater than right foraminal and lateral recess stenosis with facet arthropathy at L4-L5 which is consistent with her left radiculopathy. She does have a left hydronephrosis for which I think is entirely unrelated to her current pain syndrome (not consistent with radiculopathy pain). She has a congenital left UPJ obstruction that her urologist in [place] plans to stent at some point. During this admission she had a CT angiogram that showed that there was no vascular structure causing this compression. Her pain is under better control though when doing a Valsalva maneuver while attempting to pass a bowel movement today she had recurrence of left radiculopathy pain radiating to her leg. PHYSICAL EXAMINATION: Afebrile. Vital signs are stable. 135/62. She is awake and in no distress. Lungs are clear. Abdomen soft and nontender. Straight-leg raising is positive on the left. Mild left EHL weakness. LABS: CBC white count 11.6, hemoglobin 10, sodium 141, potassium 3.4, electrolytes are unremarkable. IMPRESSION: 1. Left radiculopathy. She has finally received some pain control. Pain recurred during Valsalva maneuver which has put her back in bed. The plan is to keep her here over the weekend and get the pain clinic to see her on Wednesday for consideration some injections. She should see orthopedic surgery such as Dr. Leos at the [facility] as an outpatient after she is seen by pain management. 2. Left UPJ congenital obstruction. I think this is unrelated to her current pain symptoms and she has an outpatient urologist to see her for this. 3. Hypertension. Continue on atenolol and losartan. 4. Recent urinary tract injection, restart her Bactrim that she is taking as an outpatient. I held it yesterday because of a slight decline in renal function and exposure to IV dye yesterday with the angiogram. Renal function is now back to baseline. I have put the consult in for pain management but there is no way to reach them over the weekend, so the rounding team on Wednesday will have to call over to the pain clinic. 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 It was nice to get reacquainted with her.
[2019-01-29] MEDS: PANTOPRAZOLE 20 MG TAB PO SCH (09:14)
[2019-01-29] MEDS: ATORVASTATIN 20 MG TAB PO SCH (09:14)
[2019-01-29] MEDS: KETOROLAC 30 MG/ML VIAL (J1885) IV PRN ×2 (09:14→22:21)
[2019-01-29] MEDS: LOSARTAN 50 MG TAB PO SCH (09:16)
[2019-01-29] MEDS: ATENOLOL 25 MG TAB PO SCH (09:17)
[2019-01-29] MEDS: ENOXAPARIN 40 MG/0.4 ML SYRINGE (J1650) SC SCH (09:22)
[2019-01-29 10:00] VITALS: BP 152/64
[2019-01-29 14:00] VITALS: BP 158/82
[2019-01-29] MEDS ORDERED: BISACODYL 10 MG SUPP PR ONE (15:15)
[2019-01-29] MEDS: SIMETHICONE 80 MG CHEW TAB PO PRN ×2 (15:26→21:50)
[2019-01-29 18:00] VITALS: BP 160/78
--- NOTE | 2019-01-29 21:59 | IPNPDOC ---
Text Note Date of Service The patient was seen on 01/29/19. NOTE Subjective: -Nauseous -Has pain when she tries to get up -Is constipated and she thinks it is iatrogenic from the pain medication she is receiving -otherwise a great historian ROS: negative for fever, chills, hematuria Objective Vitals: as below General: NAD, pleasant, however is uncomfortable when she moves. Pulm: CTAB Cardiac: RRR, no mrg Abdomen: hypoactive bowel sounds, soft, non tender MSK: has pain with twisting to turn to back, straight-leg raise is positive on the left side. 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 Of note, she has a left hydronephrosis in the setting of a congenital left UPJ obstruction that her urologist in [place] plans to stent at some point. IMPRESSION: 1. Left radiculopathy. -consult pain clinic to see her on Wednesday for consideration some injections. -Refer to orthopedic surgery such as Dr. Leos at the [facility] as an outpatient after she is seen by pain management. -During this admission she had a CT angiogram that showed that there was no vascular structure causing this compression. 2. Left UPJ congenital obstruction. Likely unrelated to her current pain symptoms especially given the radicular nature of the pain. -Has an outpatient urologist to see her for this, will defer for now 3. Hypertension. Continue on atenolol and losartan. 4. Recent urinary tract infection, was on Bactrim as an outpatient. -was held it because of a slight decline in renal function and exposure to IV contrast with the angiogram. -Renal function is now back to baseline. -Need to investigate days on course, to restart likely tomorrow. 5. ConstipationL in the setting of pain medications -Sennakot -Miralax PRN -eventually had to give her a dulcolax suppository -added simethicone for bloating 6. Nausea: -Zofran PRN DVT prophylaxis: lovenox Diet: regular Dispo: pending pain consult RMEI,Sonia, I+O VS, Sonia, I+O Laboratory Tests 01/29/19 05:33 Red Blood Count 3.59 L, Mean Corpuscular Volume 91.9, Mean Corpuscular Hemoglobin 30.4, Mean Corpuscular Hemoglobin Concent 33.0, Red Cell Distribution Width 14.0, Calcium Level 8.4 L Vital Signs Date Time Temp Pulse Resp B/P (MAP) Pulse Ox O2 Delivery O2 Flow Rate FiO2 01/29/19 18:00 97.8 80 17 160/78 (105) 95 01/27/19 17:06 Room Air I&O- Last 24 Hours up to 6 AM 01/29/19 06:00 Intake Total 2140 ml Output Total 800 ml Balance 1340 ml NOMI BALDERAS MD Jan 29, 2019 21:59
[2019-01-29 22:00] VITALS: BP 154/82
[2019-01-29] MEDS: ONDANSETRON 4MG/2ML VIAL (J2405) IV PRN (22:19)
[2019-01-30 02:00] VITALS: BP 157/82
[2019-01-30] MEDS ORDERED: MAALOX 30 ML SUSP *UDC PO PRN (04:00)
[2019-01-30] MEDS ORDERED: METOCLOPRAMIDE 5 MG TAB PO PRN (04:00)
[2019-01-30] MEDS ORDERED: MAGNESIUM CITRATE 300 ML BTL PO ONE (05:00)
[2019-01-30] MEDS ORDERED: MOM 30ML SUSPENSION UDC PO PRN (05:00)
[2019-01-30] MEDS ORDERED: FLEET OIL RETENTION ENEMA PR PRN (05:00)
[2019-01-30 06:00] VITALS: BP 158/84
[2019-01-30 06:24] LABS: HEMATOCRIT 32.4 % (36.0-47.0); HEMOGLOBIN 10.8 g/dl (12.0-15.5); MEAN CORPUSCULAR HEMOGLOBIN 30.2 pg (27.0-33.0); MEAN CORPUSCULAR HGB CONC 33.3 g/dl (32.0-36.5); MEAN CORPUSCULAR VOLUME 90.5 fl (80.0-96.0); PLATELET COUNT, AUTOMATED 412 10^3/uL (150-450); RED BLOOD COUNT 3.58 10^6/uL (4.00-5.40); WHITE BLOOD COUNT 14.6 10^3/uL (4.0-10.0)
[2019-01-30 06:48] LABS: BLOOD UREA NITROGEN 14 MG/DL (7-18); CARBON DIOXIDE LEVEL 25 MEQ/L (21-32); CHLORIDE LEVEL 101 MEQ/L (98-107); CREATININE FOR GFR 0.65 MG/DL (0.55-1.30); GLOMERULAR FILTRATION RATE > 60.0 (>32); GLUCOSE, FASTING 164 MG/DL (70-100); POTASSIUM SERUM 3.7 MEQ/L (3.5-5.1); SODIUM LEVEL 135 MEQ/L (136-145)
[2019-01-30 10:00] VITALS: BP 159/80
[2019-01-30] MEDS: ENOXAPARIN 40 MG/0.4 ML SYRINGE (J1650) SC SCH (10:07)
[2019-01-30] MEDS: LOSARTAN 50 MG TAB PO SCH (10:07)
[2019-01-30] MEDS: ATORVASTATIN 20 MG TAB PO SCH (10:07)
[2019-01-30] MEDS: ATENOLOL 25 MG TAB PO SCH (10:08)
[2019-01-30] MEDS: PANTOPRAZOLE 20 MG TAB PO SCH (10:08)
[2019-01-30] MEDS: ONDANSETRON 4MG/2ML VIAL (J2405) IV PRN (13:20)
[2019-01-30 14:00] VITALS: BP 163/80
--- NOTE | 2019-01-30 16:29 | CR ---
DATE OF CONSULTATION: 01/30/2019 REFERRING PROVIDER: Dr. Farmer HISTORY OF PRESENT ILLNESS: Kate is an 83-year-old female who was admitted 3 days ago due to excruciating low back and leg pain and inability to walk. Pain is located across the lower back with radiation into the legs left greater than right. Admits to doing a lot of moving of furniture and golfing. Has never experienced acute episodes of back pain in the past. Today we reviewed her imaging studies and discussed treatment options. PHYSICAL EXAM: She is lying in bed but moves around easily. No significant discomfort noted. Vital signs are 97.9, 91, 18. BP was 163/80. Oxygen saturation is 92%. Cardiac: S1, S2, normal rate and rhythm. Respiratory: Lung sounds are clear. Respirations nonlabored. Neurologic exam - normal sensation to light touch upper and lower extremities. Muscle strength testing 5/5 bilaterally. Rises to a stand easily. No guarding. Inspection of spine - specific point tenderness noted over sacroiliac (SI) joints bilaterally. DIAGNOSTIC IMAGING: MRI of the lumbosacral (LS) spine 01/27/2019 reviewed. ASSESSMENT: 1. Sacroiliitis. 2. Lumbar spinal stenosis. PLAN: We will bring her to the pain center tomorrow, 01/31/2019, for bilateral sacroiliac joint (SIJ). Potential risks and benefits were reviewed with the patient. She will followup with Dr. Solomon upon discharge. Dr. Solomon may want her to see us for followup if her pain persists to discuss other treatment options. She will be nothing by mouth after breakfast tomorrow morning. May have clear liquids up until 12 noon. We will call for her around 2:30 p.m. to be transported to the pain center. Hold Lovenox tomorrow. Thank you for allowing us to participate in the care of your patient. If you have any questions or concerns, please do not hesitate to contact me. Sincerely, Suha Taylor, Family Nurse Practitioner, [facility] Center, [facility].
[2019-01-30 18:00] VITALS: BP 160/80
--- NOTE | 2019-01-30 20:15 | IPNPDOC ---
Text Note Date of Service The patient was seen on 01/30/19. NOTE Subjective: -Continues to be nauseous despite zofran with poor PO -Finally had a BM after multiple agents -Discussed fluid repletion but ultimately decided against IV fluids ROS: negative for fever, chills, hematuria Objective Vitals: as below General: NAD, pleasant, uncomfortable when she twists. Pulm: CTAB Cardiac: RRR, no mrg Abdomen: hypoactive bowel sounds, soft, non tender MSK: has pain with twisting to turn to back, straight-leg raise is positive on the left side. 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 Of note, she has a left hydronephrosis in the setting of a congenital left UPJ obstruction that her urologist in [place] plans to stent at some point. IMPRESSION: 1. Left radiculopathy. -consulted pain management, is due to go to the pain center tomorrow for assessment of bilateral sacroiliac joint (SIJ) and treatment -Dr. Farmer suggested a referral to orthopedic surgery such as Dr. Leos at the [facility] as an outpatient after she is seen by pain management and she also is considering a neurosurgeon in [place]. -During this admission she had a CT angiogram that showed that there was no vascular structure causing this compression. 2. Left UPJ congenital obstruction. Likely unrelated to her current pain symptoms especially given the radicular nature of the pain. -Has an outpatient urologist to see her for this, will defer for now 3. Hypertension. Continue on atenolol and losartan. 4. Recent urinary tract infection, was on Bactrim as an outpatient. -was held it because of a slight decline in renal function and exposure to IV contrast with the angiogram. -Renal function is now back to baseline. -Has no symptoms, and labs remain normal, will discontinue the bactrim altogether at this time. 5. Constipation in the setting of pain medications -Sennakot, Miralax PRN -simethicone for bloating 6. Nausea: -Zofran PRN DVT prophylaxis: lovenox Diet: regular Dispo: pending pain center assessment and treatment VS,Fishbone, I+O VS, Fishbone, I+O Laboratory Tests 01/30/19 05:49 Red Blood Count 3.58 L, Mean Corpuscular Volume 90.5, Mean Corpuscular Hemoglobin 30.2, Mean Corpuscular Hemoglobin Concent 33.3, Red Cell Distribution Width 13.9, Calcium Level 9.0 Vital Signs Date Time Temp Pulse Resp B/P (MAP) Pulse Ox O2 Delivery O2 Flow Rate FiO2 01/30/19 18:00 97.8 92 17 160/80 (106) 97 01/27/19 17:06 Room Air I&O- Last 24 Hours up to 6 AM 01/30/19 05:59 Intake Total 200 ml Output Total 650 ml Balance -450 ml NOMI BALDERAS MD Jan 30, 2019 20:15
[2019-01-30 22:00] VITALS: BP 152/74
[2019-01-30] MEDS: KETOROLAC 30 MG/ML VIAL (J1885) IV PRN (23:49)
[2019-01-31] VITALS (10 sets, daily range): BP systolic 118–155; BP diastolic 54–82
[2019-01-31] MEDS ORDERED: CYCLOBENZAPRINE 5MG TABLET PO ONE (05:45)
[2019-01-31 06:51] LABS: HEMATOCRIT 31.9 % (36.0-47.0); HEMOGLOBIN 10.6 g/dl (12.0-15.5); MEAN CORPUSCULAR HEMOGLOBIN 30.1 pg (27.0-33.0); MEAN CORPUSCULAR HGB CONC 33.2 g/dl (32.0-36.5); MEAN CORPUSCULAR VOLUME 90.6 fl (80.0-96.0); PLATELET COUNT, AUTOMATED 415 10^3/uL (150-450); RED BLOOD COUNT 3.52 10^6/uL (4.00-5.40); WHITE BLOOD COUNT 12.6 10^3/uL (4.0-10.0)
[2019-01-31 07:17] LABS: BLOOD UREA NITROGEN 13 MG/DL (7-18); CALCIUM LEVEL 8.8 MG/DL (8.8-10.2); CARBON DIOXIDE LEVEL 27 MEQ/L (21-32); CHLORIDE LEVEL 99 MEQ/L (98-107); CREATININE FOR GFR 0.66 MG/DL (0.55-1.30); GLOMERULAR FILTRATION RATE > 60.0 (>32); GLUCOSE, FASTING 126 MG/DL (70-100); POTASSIUM SERUM 3.8 MEQ/L (3.5-5.1); SODIUM LEVEL 135 MEQ/L (136-145)
[2019-01-31] MEDS: ATORVASTATIN 20 MG TAB PO SCH (09:42)
[2019-01-31] MEDS: PANTOPRAZOLE 20 MG TAB PO SCH (09:42)
[2019-01-31] MEDS: ATENOLOL 25 MG TAB PO SCH ×2 (09:43→21:00)
[2019-01-31] MEDS ORDERED: amLODIPine 10 MG TAB PO ONE (09:45)
[2019-01-31] MEDS: **hydrALAZINE** 10 MG TAB PO SCH ×3 (12:00→23:19)
[2019-01-31] MEDS ORDERED: diazePAM 5 MG TAB As Ordered ONE (14:51)
[2019-01-31] MEDS ORDERED: TRIAMCINOLONE ACETONIDE SUSP 40 MG/ML VIAL (J3301) As Ordered ONE (15:35)
[2019-01-31] MEDS ORDERED: LIDOCAINE 1% SDV INJ 30 ML VIAL As Ordered ONE (15:35)
[2019-01-31] MEDS ORDERED: ISOVUE-M 300 61% 15ML VIAL (Q9967) As Ordered ONE (15:35)
[2019-01-31] MEDS ORDERED: BUPIVACAINE HCL 0.25% 30 ML VIAL As Ordered ONE (15:35)
--- NOTE | 2019-01-31 16:02 | IPN ---
DATE: 01/31/2019 SUBJECTIVE: Complains of severe pain of the back. No lower extremity weakness. Rating the pain as 7/10 radiating down the leg. The patient denies any urine or bowel incontinence. Denies any weakness, able to ambulate around the room per nursing. Despite the patient's blood pressure ranging from 140 to 163 systolic, she denies any chest pain, pressure or tightness, headaches, changes in vision, shortness of breath, lightheaded or near syncope. OBJECTIVE/PHYSICAL EXAMINATION: VITAL SIGNS: Temperature 98.2, pulse 75, respiratory rate 16, blood pressure 145/80 to 162/74, 97% on room air. GENERAL: Patient is awake, alert and oriented times three, appears her stated age. No use of accessory respiratory muscles. HEENT: No jugular venous distention (JVD), thyromegaly, or cervical lymphadenopathy. LUNGS: Clear to auscultation. No wheezing or rales. HEART: S1, S2 sinus rhythm. ABDOMEN: Soft, nontender, nondistended. Positive bowel sounds. No rebound, guarding or hepatosplenomegaly. EXTREMITIES: No pitting edema. HOSPITAL MEDICATIONS: - Norvasc - Tylenol - hydralazine - fleet enema - Milk of Magnesia - Mylanta - Reglan - simethicone - Toradol - Zofran - MiraLAX - Senokot - Lipitor - Protonix - IV morphine LABORATORY DATA: White count 12.6, hemoglobin 10, hematocrit 31, platelet count 415. Sodium 134, potassium 3.8, chloride 99, bicarb 27, BUN 13, creatinine 0.62, glucose of 126. Lumbar spine MRI 01/27 no fracture, moderate to severe central stenosis at L3- L4. Degenerative findings. Chest x-ray 01/27 chronic changes. No acute infiltrate. CT chest congenital UPJ obstruction of the left, moderate left hydronephrosis. No vascular compression of the renal collecting system. No stone disease. Dilated gallbladder with mildly dilated intra and extra hepatic biliary ducts. CBD 12 mm. Etiology unknown. No stone or mass. Significant stenosis at the right renal artery. Diffuse aortoiliac narrowing due to calcific plaquing. Diffuse heavy vascular calcification of aorta and its branches. Pancolonic diverticulosis. ASSESSMENT/PLAN: This is an 83-year-old female with history of congenital UPJ junction and hydronephrosis followed by urologist as an outpatient, spinal stenosis, hypertension, recent UTI completed Bactrim as an outpatient, chronic constipation and nausea, who presented with weakness, unable to ambulate and severe pain found to have left radiculopathy. IMPRESSION: 1. Spinal stenosis L3-L4. Pain management service has been consulted for injections. The patient is kept on as needed medications with Toradol and intravenous morphine. Physical therapy has been consulted, which has been held due to plan for SI block at the pain management center. 2. Chronic UPJ obstruction with chronic mild hydronephrosis. Patient has normal creatinine and therefore will followup as an outpatient with her urologist. 3. Significant stenosis of the right renal artery. The patient's blood pressure ranges from 140 to 160. Will obtain renal ultrasound with Doppler. Vascular surgery referral if needed. Continue atenolol and hydralazine for blood pressure control and Norvasc. 4. Hypertension on atenolol, hydralazine and Norvasc for now. 5. Deep vein thrombosis (DVT) prophylaxis with compression stockings. [facility]
[2019-02-01 02:00] VITALS: BP 116/63
[2019-02-01] MEDS: **hydrALAZINE** 10 MG TAB PO SCH (05:53)
[2019-02-01 06:00] VITALS: BP 130/68
[2019-02-01 06:53] LABS: HEMATOCRIT 36.9 % (36.0-47.0); HEMOGLOBIN 12.3 g/dl (12.0-15.5); MEAN CORPUSCULAR HEMOGLOBIN 30.4 pg (27.0-33.0); MEAN CORPUSCULAR HGB CONC 33.3 g/dl (32.0-36.5); MEAN CORPUSCULAR VOLUME 91.1 fl (80.0-96.0); PLATELET COUNT, AUTOMATED 477 10^3/uL (150-450); RED BLOOD COUNT 4.05 10^6/uL (4.00-5.40); WHITE BLOOD COUNT 9.1 10^3/uL (4.0-10.0)
[2019-02-01 07:21] LABS: BLOOD UREA NITROGEN 18 MG/DL (7-18); CALCIUM LEVEL 8.9 MG/DL (8.8-10.2); CARBON DIOXIDE LEVEL 26 MEQ/L (21-32); CHLORIDE LEVEL 103 MEQ/L (98-107); CREATININE FOR GFR 0.82 MG/DL (0.55-1.30); GLOMERULAR FILTRATION RATE > 60.0 (>32); GLUCOSE, FASTING 213 MG/DL (70-100); POTASSIUM SERUM 3.8 MEQ/L (3.5-5.1); SODIUM LEVEL 139 MEQ/L (136-145)
[2019-02-01 09:00] VITALS: BP 130/60
[2019-02-01] MEDS: ATENOLOL 25 MG TAB PO SCH (09:00)
[2019-02-01] MEDS ORDERED: amLODIPine 10 MG TAB PO SCH (09:00)
[2019-02-01] MEDS: PANTOPRAZOLE 20 MG TAB PO SCH (09:31)
[2019-02-01] MEDS: ATORVASTATIN 20 MG TAB PO SCH (09:31)
--- NOTE | 2019-02-01 10:27 | IPN ---
DATE OF SERVICE: 02/01/2019 SUBJECTIVE: The patient denies any chest pain, pressure, or tightness, lightheadedness, or dizziness. Blood pressure has been well maintained at 116-136 systolic on Norvasc and atenolol. She currently is pain-free status post lumbar injections for the lumbar spine stenosis L3-L4 yesterday and feels normal today. She is currently nothing by mouth for renal artery stenosis workup with renal ultrasound with Doppler. OBJECTIVE/PHYSICAL EXAMINATION: VITAL SIGNS: Temperature 96.2, pulse 65, respiratory rate 16, blood pressure 130/68, 98% on room air. GENERALLY, awake, alert and oriented times three, answering questions appropriately. LUNGS: Are clear to auscultation. No wheezing, rales, or rhonchi. HEART: S1, S2 sinus rhythm. ABDOMEN: Soft, nontender, nondistended. Positive bowel sounds. EXTREMITIES: No clubbing, cyanosis, or pitting edema HOSPITAL MEDICATIONS: - Norvasc 10 daily- Tylenol 25 twice a day- hydralazine 10 mg every 6 hours- Fleet enema- mineral oil- milk of magnesia- Reglan- simethicone- Toradol- Zofran- MiraLAX- Senokot- Lipitor- Protonix- morphine ASSESSMENT AND PLAN: This is an 83-year-old female with renal artery stenosis, sma and celiac artery atherosclerotic disease, congenital ureteropelvic junction (UPJ) obstruction with chronic hydronephrosis follows with her urologist as outpatient, spinal stenosis, recently completed Bactrim for a UTI as outpatient, chronic constipation, presented with weakness, unable to ambulate, severe pain with left radiculopathy. ACUTE ISSUES: 1. Spinal stenosis L3-L4 with left radicular pain. Resolved. Pain management has been consulted for injection. Physical therapy (PT) cleared for home safety evaluation. 2. 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 Normal creatinine. Follows up with her urologist as outpatient. 3. High-grade stenosis right renal artery. The patient angiotensin receptor aleksander (ARB) has been discontinued. Currently on atenolol and Norvasc. Will discontinue hydralazine. Vascular surgery has been consulted. The patient to decide if she wants inpatient or outpatient workup. 4. Hypertension. Controlled on atenolol and Norvasc. Will discontinue hydralazine. 5. Deep vein thrombosis (DVT) prophylaxis. Compression stockings. DISPOSITION: Discharge if workup as outpatient for renal artery stenosis and passes home safety evaluation. MTDD
[2019-02-01] MEDS ORDERED: ATEN25TA PO (11:36)
[2019-02-01] MEDS ORDERED: SENN-52 PO (11:36)
[2019-02-01] MEDS ORDERED: AMLO10TA5 PO (11:36)
--- NOTE | 2019-02-01 12:29 | CR.PDOC ---
General Date of Consultation: Feb 01, [address] Mckoy HPI: 83year oldF admitted to [facility] with back pain. Vascular Surgery is consulted re JACKY. Denies pain currently and plan is for pt to be discharged later today. Denies any fevers, chills, weakness, fatigue, Headache, Chest Pain, Shortness of breath, cough, palpitations, abdominal pain, N/V/D or changes in bowel or bladder habits. PMHx: HTN HLD LBP/Lumbar SS GERD SOCHX: Tobacco use: denies ETOH: denies FAMHX: non contributory. ROS: As noted in HPI, otherwise 11pt ROS of systems reviewed and unremarkable. PE: GEN: yo, appears stated age. Well-nourished, well developed. No acute distress. Alert and oriented x 3. Pleasant, interactive. HEENT: Normocephalic, atraumatic. Pupils are equal, round, and reactive to light. Extraocular movements are intact. No nystagmus appreciated. Sclera are nonicteric. Conjunctiva without injection. Nose midline. Nasal turbinates without bogginess. EACs both patent BL. TMs both visualized and carbajal with good cone of light, no bulging or erythema. No facial asymmetry. Moist mucous membr anes. Dentition fair. Pharynx pink and moist, no cobblestoning. Neck supple, trachea midline. No lymphadenopathy or thyromegaly appreciated. CHEST: Regular rate and rhythm, +S1, +S2 LUNGS: Clear to auscultation bilaterally. No wheezes, rales, or rhonchi. Breathing appears symmetric and easy. Patient is speaking in full sentences. No accessory muscle use. ABD: Round, soft, non-tender, non-distended. +Bowel sounds throughout. No rebound or guarding. No costovertebral angle tenderness. EXT: Pulses 2+ bilaterally dorsalis pedis and radial. No lower extremity edema appreciated. SKIN: Peck, dry, warm. Capillary refill <2sec. No rashes. NEURO: Alert and oriented x 3. Cranial nerves III-XII are intact. No focal deficits appreciated. CTA A/P IMPRESSION: 1. 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 No evidence of vascular compression of the renal collecting system or ureteropelvic junction. No stone disease seen. 2. Dilated gallbladder and mildly dilated intra and extrahepatic bile ducts, CBD 12 mm. Etiology uncertain. No stone or mass seen by CT. 3. Diffuse heavy vascular calcification in the aorta and its branches. Significant stenosis at the origin of the right renal artery is seen. Diffuse aortoiliac narrowing due to calcific plaquing. 4. Pancolonic diverticulosis. Electronically Signed by Vincent Mendoza MD 01/27/2019 02:40 P Renal US pending. A&P: 1. JACKY. The pt is reviewed and examined as per Dr Mckoy. Imaging is reviewed by Dr Mckoy. Renal US pending at this time. SCr in noted to be WNL. HTN is controlled. BP 130/60. Continue with antihypertensives. Recommendation as per Dr Mckoy is for conservative mgmt. Would recommend outpt FU renal artery doppler for surveillance in 6 months with FU in office to review results. Vital Signs/I&O Vital Signs Date Time Temp Pulse Resp B/P (MAP) Pulse Ox O2 Delivery O2 Flow Rate FiO2 02/01/19 09:00 130/60 02/01/19 06:00 96.2 65 16 98 01/27/19 17:06 Room Air I&O- Last 24 Hours up to 6 AM 02/01/19 06:00 Intake Total 1300 ml Output Total 0 ml Balance 1300 ml Laboratory Data Labs 24H Laboratory Tests 2 02/01/19 06:32: Nucleated Red Blood Cells % (auto) 0.0, Anion Gap 10, Glomerular Filtration Rate > 60.0, Blood Urea Nitrogen 18, Creatinine 0.82, Sodium Level 139, Potassium Lev el 3.8, Chloride Level 103, Carbon Dioxide Level 26, Calcium Level 8.9 CBC/BMP Laboratory Tests 02/01/19 06:32 Red Blood Count 4.05, Mean Corpuscular Volume 91.1, Mean Corpuscular Hemoglobin 30.4, Mean Corpuscular Hemoglobin Concent 33.3, Red Cell Distribution Width 13.9, Calcium Level 8.9 Microbiology Microbiology 01/29/19 Urine Culture - Final, Complete Allergies Coded Allergies: No Known Allergies (Unverified , 01/27/19) Home Medications Scheduled Amlodipine Besylate (Amlodipine Besylate) 10 Mg Tablet, 10 MG PO DAILY for 30 Days, #30 Atenolol (Atenolol) 25 Mg Tablet, 25 MG PO BID for 30 Days, #60 Atorvastatin Calcium (Lipitor) 20 Mg Tab, 20 MG PO DAILY, (Reported) Omeprazole (Omeprazole) 40 Mg Capsule.dr, 40 MG PO DAILY, (Reported) Ubidecarenone (Co Q10) 200 Mg Capsule, 200 MG PO DAILY, (Reported) Scheduled PRN Acetaminophen with Codeine (Acetaminophen-Cod #3 Tablet) 1 Each Tablet, 1 TAB PO BID PRN for PAIN, (Reported) Sennosides/Docusate Sodium (Senna Plus Tablet) 1 Each Tablet, 1 TAB PO BIDP PRN for CONSTIPATION for 10 Days, #20 Miscellaneous Medications [Pt Comments] , (Reported) PCP TOLD PT. TO STOP ATENOLOL, ATORVASTATIN, LOSARTAN AND CO-Q10. SHE HASN'T TAKEN ANY OF THESE SINCE 01/24. Attending Note Attending Note VASCULAR SURGICAL ATTENDING NOTE: Dr. Kay Mckoy M.D. ASSESSMENT: Patient is an 83-year-old female who was found to have renal artery stenosis. Patient was initially admitted with flank pain on the left side and was found to have renal artery stenosis on the right after undergoing a CT angiogram. Patient has no difficulty with hypertension and has normal renal function. PLAN: Patient will continue with conservative medical management of her renal artery stenosis. Patient will undergo a repeat renal artery duplex in 6 months with follow-up office visit with myself. Claritza Banks was the attending vascular surgeon for this patient encounter. The patient was seen, examined, interviewed and evaluated independently by Dr. Patrice Mckoy M.D. Dr. Patrice Mckoy M.D. was fully available during the consultation evaluation. All aspects of the patient interview, examination, medical decision making process, and medical care plan development were reviewed and approved by Dr. Patrice Mckoy M.D. Dr. Patrice Mckoy M.D. is aware and concurs with the plan as stated in the body of this note and will attest to such by his/her cosignature. Jennifer Ocampo Feb 01, 2019 12:29 Memo Mckoy MD Feb 03, 2019 00:03
--- NOTE | 2019-02-01 12:57 | REP ---
Renal vascular ultrasound: Right Kidney: Extraparenchymal renal artery. Peak renal artery flow velocity the 105 cm/ sec Peak aortic velocity: 167 cm/sec Renal/aortic ratio: 0.6 Intraparenchymal renal arteries. Resistive index: upper pole 0.78 mid pole 0.79 lower pole 0.75 Acceleration time: upper pole 0.022 mid pole 0.022 lower pole 0.022 Left kidney: Extraparenchymal renal artery: Peak renal artery flow velocity: 100 cm/sec. Peak aortic velocity: 167 cm/sec Renal/aortic ratio: 0.5 Intraparenchymal renal arteries: Resistive index: Upper pole 0.64 mid pole 0.69 lower pole 0.67 Acceleration time: Upper pole 0.022 mid pole 0.022 lower pole 0.022 Impression: No evidence of renal artery stenosis by Doppler ultrasound. In the resistive indices of the right kidney are mildly elevated compared to the left. This is nonspecific. Bilateral renal ultrasound: The right kidney measures 11.4 4.3 x 3.7 cm and is normal size. The left kidney measures 10.6 x 3.2 x 4.6 cm and is normal size. Renal cortical echogenicity is normal bilaterally. There is no hydronephrosis on the right. There is moderate/severe hydronephrosis on the left. There is a 7.4 mm right renal lower pole cyst. There are no left renal cysts. There are no solid masses on the right on the left. There is a right ureteral jet into the bladder with color Doppler assessment. No left ureteral jet is identified. Impression: Left hydronephrosis. No left ureteral jet. Small right renal cortical cyst. Electronically Signed by Vince Sanchez MD 02/01/2019 12:48 P
[2019-02-01 14:00] VITALS: BP 123/57
--- NOTE | 2019-02-02 09:33 | REP ---
C-ARM VIEWS SACROILIAC JOINTS: Clinical history: Pain. Four C-ARM views of the sacroiliac joints are performed bilaterally during injection by Dr. Samuels. [place]han are seen overlying each sacroiliac joint Small amount of contrast is injected. Fluoroscopy time 28 seconds. Electronically Signed by Vince Willis MD 02/02/2019 05:34 P
== END 2019-02-01 14:38 | disposition home or self-care (01) | DRG 552 ==
LOC: M ED 09:01 → M ED INP 09:02 → UNDOADMOB 10:03 → M ED INP 10:03 → UNDOADMOB 15:46 → M ED INP 15:46 → M MSPAV 18:19 → M ED INP 18:19 → UNDOADMOB 01-30 20:06 → M MSPAV 01-30 20:06 → OBSVTOIN 01-30 20:06 → INTOOBSV 01-31 12:10 → OBSVTOIN 01-31 12:10 → UNDODISIN 02-01 14:38
PROVIDERS: ADMIT Family Medicine; ATTEND Family Medicine
DX: M48.061 Spinal stenosis, lumbar region without neurogenic claudication (principal); Q62.11 Congenital occlusion of ureteropelvic junction; I10 Essential (primary) hypertension; I70.1 Atherosclerosis of renal artery; E78.5 Hyperlipidemia, unspecified; Z79.899 Other long term (current) drug therapy; Z79.82 Long term (current) use of aspirin; K59.00 Constipation, unspecified; M46.1 Sacroiliitis, not elsewhere classified; K57.30 Diverticulosis of large intestine without perforation or abscess without bleeding

== ENCOUNTER → 2019-01-27 | Outpatient (CLI) | payer MEDICARE ==
[~2019-01-27] MED LIST changes: +ACET1TAB16 PO; +AMLO10TA5 PO; +CEFU1TAB20 PO; +COQ1200C3 PO; +LOSA50TA88 PO; +OMEP-218 PO; +OMEP-221 PO; +PT COMMENTS; +SENN-52 PO; +SULF1TAB93 PO
== END ==
LOC: M RAD 08:23
PROVIDERS: ATTEND Specialist
DX: N13.0 Hydronephrosis with ureteropelvic junction obstruction (principal)

== ENCOUNTER → 2019-02-08 | Outpatient (CLI) | payer MEDICARE ==
[~2019-02-08] MED LIST changes: +ACET1TAB16 PO; +AMLO10TA5 PO; +OMEP-221 PO; +PT COMMENTS; +SENN-52 PO
== END ==
LOC: M PAIN 11:15
PROVIDERS: ATTEND Nurse Practitioner Family
DX: M46.1 Sacroiliitis, not elsewhere classified (principal); I10 Essential (primary) hypertension; Z79.899 Other long term (current) drug therapy; Z87.891 Personal history of nicotine dependence

== ENCOUNTER 2019-03-13 20:18 | Emergency (ER) | payer MEDICARE ==
[~2019-03-13] VITALS: Ht 157.5 cm; Wt 53.2 kg
[2019-03-13 22:18] LABS: BASO % 0.3 % (0.0-1.0); EOS % 0.2 % (0.0-3.0); HEMOGLOBIN 12.3 g/dl (12.0-15.5); LYMPH # 1.2 10^3/uL (1.5-5.0); LYMPH % 11.5 % (24.0-44.0); MEAN CORPUSCULAR HEMOGLOBIN 30.7 pg (27.0-33.0); MEAN CORPUSCULAR HGB CONC 34.2 g/dl (32.0-36.5); MEAN CORPUSCULAR VOLUME 89.8 fl (80.0-96.0); MONO # 0.7 10^3/uL (0.0-0.8); MONO % 6.6 % (0.0-5.0); NEUTROPHILS # 8.2 10^3/uL (1.5-8.5); NEUTROPHILS % 80.4 % (36.0-66.0); PLATELET COUNT, AUTOMATED 215 10^3/uL (150-450); RED BLOOD COUNT 4.01 10^6/uL (4.00-5.40); WHITE BLOOD COUNT 10.2 10^3/uL (4.0-10.0)
[2019-03-13 22:35] LABS: BILIRUBIN,TOTAL 0.4 MG/DL (0.2-1.0); CALCIUM LEVEL 8.4 MG/DL (8.8-10.2); CREATININE FOR GFR 1.03 MG/DL (0.55-1.30); GLOMERULAR FILTRATION RATE 54.3 (>32)
[2019-03-13 22:36] LABS: ALBUMIN 2.9 GM/DL (3.2-5.2); TOTAL PROTEIN 6.1 GM/DL (6.4-8.2)
[2019-03-13] MEDS ORDERED: NS 1,000 ML IV ONE (23:00)
[2019-03-13] MEDS ORDERED: SULF1TAB93 (23:56)
[2019-03-13] MEDS ORDERED: OXYC1TAB23 (23:56)
[2019-03-14 00:41] VITALS: BP 104/54
== END 2019-03-14 00:56 | disposition home or self-care (01) ==
LOC: M ED 20:18
DX: R50.82 Postprocedural fever (principal); Z96.0 Presence of urogenital implants; I10 Essential (primary) hypertension; E78.5 Hyperlipidemia, unspecified; Z79.899 Other long term (current) drug therapy

== ENCOUNTER → 2019-04-06 | Outpatient (CLI) | payer MEDICARE ==
[~2019-04-06] MED LIST changes: +OXYC1TAB23; +SULF1TAB93
--- NOTE | 2019-04-06 15:23 | REP ---
Left lower extremity Duplex Doppler venous ultrasound: Real time compression and duplex Doppler interrogation of the left lower extremity deep venous system is performed. The left common femoral, superficial femoral and popliteal veins are fully compressible with transducer pressure and demonstrate normal spontaneous and phasic flow, without evidence of deep venous thrombosis. Impression: No evidence of deep venous thrombosis of the left lower extremity femoral popliteal venous system. Electronically Signed by Vince Willis MD 04/06/2019 03:14 P
== END ==
LOC: M RAD 14:26
PROVIDERS: ATTEND Physician Assistant
DX: R60.0 Localized edema (principal)

== ENCOUNTER → 2019-05-01 | Outpatient (CLI) | payer MEDICARE ==
--- NOTE | 2019-05-12 04:36 | ECWPNPC ---
PATIENT NAME: AGUILAR MORENO : 1935 GENDER: FEMALE VISIT DATE: 05/01/2019 DISCHARGE DATE: 05/01/19 1201 VISIT LOCKED DATE TIME: PHYSICIAN: TIAN NANCE RESOURCE: TIAN NANCE REASON FOR APPOINTMENT 1. 3 MONTHS HISTORY OF PRESENT ILLNESS HISTORY OF PRESENT ILLNESS: HERE FOR F/U OF CHRONIC LBP.HAD KIDNEY STENT REMOVED ON .REPORTING AN INCREASE IN LBP SINCE PROCEDURE.CURRENTLY BEING EVALUATED FOR ELEVATED HGBA1C WITH PRIMARY CARE PROVIDER.RATING LBP 4-6/10 VAS.PAIN IS AGGREVATED BY PROLONGED SITTING. PAIN THE PATIENT DESCRIBES THE PAIN... FALL RISK SCREENING: SCREENING :NO FALLS REPORTED IN THE LAST YEAR CURRENT MEDICATIONS TAKING TYLENOL WITH CODEINE #3 300-30 MG TABLET 1 TABLET NEEDED ORALLY EVERY 6 HRS TAKING ATENOLOL 25 MG TABLET 1 TABLET ORALLY ONCE A DAY TAKING ATORVASTATIN CALCIUM 20 MG TABLET 1 TABLET ORALLY QOD TAKING NORVASC 10MG TABLET ORAL TAKING COENZYME Q10 - CAPSULE DIRECTED ORALLY TAKING AMLODIPINE BESYLATE 10 MG TABLET 1 TABLET ORALLY ONCE A DAY TAKING OMEPRAZOLE 40 MG CAPSULE DELAYED RELEASE 1 CAPSULE 30 MINUTES BEFORE MORNING MEAL ORALLY ONCE A DAY MEDICATION LIST REVIEWED AND RECONCILED WITH THE PATIENT PAST MEDICAL HISTORY HTN HYPERLIPIDEMIA ARTHRITIC LBP ALLERGIES N.K.D.A. SURGICAL HISTORY HYSTRECTOMY LEFT PNEUMONECTOMY BLADDER SUSPENSION T&A KIDNEY STENT PLACED AND REMOVED FAMILY HISTORY FATHER: MOTHER: 1 BROTHER(S) - HEALTHY. 2 SON(S) , 3 DAUGHTER(S) - HEALTHY. MOTHER STROKE. SOCIAL HISTORY GENERAL: TOBACCO USE ARE YOU A:FORMER SMOKER HOW LONG HAS IT BEEN SINCE YOU LAST SMOKED?> 10 YEARS PAIN CLINIC PFS, CLERGY, PUBLIC HEALTH REFERRALS HAS THE PATIENT BEEN EDUCATED REGARDING HIS/HER PLAN OF CARE?YES HAS THE PATIENT BEEN EDUCATED REGARDING PAIN, THE RISK FOR PAIN, THE IMPORTANCE OF EFFECTIVE PAIN MANAGEMENT, AND THE PAIN ASSESSMENT PROCESS?YES ADVANCE DIRECTIVE ADVANCE DIRECTIVE DISCUSSED WITH PATIENT:YES JENNA MORENO SON [phone] [employer]ENTECOST[employer] [id number] CONGREGATION LANGUAGE LANGUAGES SPOKEN:ARMENIAN LEARNING BARRIERS / SPECIAL NEEDS BARRIERS TO LEARNING?NO HEARING IMPAIRED?NO VISION IMPAIRED?NO COGNITIVELY IMPAIRED?NO READINESS TO LEARN?YES LEARNING PREFERENCES?NO LEARNING CAPABILITIES PRESENT?YES EMOTIONAL BARRIERS?NO SPECIAL DEVICES?NO HOSPITALIZATION/MAJOR DIAGNOSTIC PROCEDURE FLANK PAIN 01/2019 SURGERIES REVIEW OF SYSTEMS REVIEWED BY: PROVIDER: TIAN HOFFMAN . CONSTITUTIONAL: ANY CHANGE IN YOUR MEDICAL CONDITION? NO . CHILLS NO . FEVER NO . INFECTION: DO YOU HAVE NEW INFECTIONS? NO . DO YOU HAVE HISTORY OF MRSA? NO . MUSCULOSKELETAL: ANY NEW PATTERNS OF PAIN OR NUMBNESS? YES, KIDNEY STENT REMOVED 04/19 . GASTROENTEROLOGY: ANY NEW CHANGE IN BOWEL CONTROL? YES, PT C/O LOOSE STOOL AND SOMETIMES SHE DOESN'T REALIZE SHE MOVED HER BOWELS STARTED LAST WEEK, PCP NOT AWARE, BUT PT WILL INFORM THEM . GENITOURINARY: ANY NEW CHANGE IN BLADDER CONTROL? NO . IS THERE A CHANCE YOU COULD BE ? NO . HEMATOLOGY/LYMPH: DO YOU TAKE ANY BLOOD THINNERS? (FOR EXAMPLE- COUMADIN, PLAVIX, AGGRENOX, PLATEL, PRADAXA, OR XARELTO) NO . WHEN WAS YOUR LAST DOSE? DATE: TIME: . NEUROLOGY: HAVE YOU FALLEN IN THE PAST 12 MONTHS? NO . ANY NEW EXTREMITY NUMBNESS OR WEAKNESS? NO . CARDIOLOGY: DO YOU HAVE A PACEMAKER OR DEFIBRILLATOR? NO . RESPIRATORY: HAVE YOU BEEN SICK IN THE PAST WEEK? NO . FEVER NO . FLU LIKE SYMPTOMS? NO . COUGH NO . INTEGUMENTARY: DO YOU HAVE ANY RASHES OR OPEN SORES? NO . ALLERGIC/IMMUNO: ARE YOU ALLERGIC TO IV DYE? NO . ANY NEW ALLERGIES? NO . PSYCHIATRIC: DO YOU HAVE THOUGHTS OF HURTING YOURSELF OR SOMEONE ELSE? NO . ARE YOU ABUSED, NEGLECTED, OR IN AN UNSAFE ENVIRONMENT? NO . ENDOCRINOLOGY: ARE YOU DIABETIC? BEING RULED OUT . OTHER: DO YOU NEED ANY PRESCRIPTIONS? NO . IF YES, PLEASE LIST: ____ . ANY NEW PROBLEMS WITH YOUR MEDICATIONS? NO . WHEN DID YOU LAST EAT? ____ . WHEN DID YOU LAST DRINK? ____ . WHAT DID YOU LAST DRINK? ____ . NAME OF PERSON DRIVING YOU HOME? ____ . DO YOU HAVE ANY OTHER QUESTIONS OR CONCERNS FLU VACCINE RECEIVED EARLY FEBRUARY . VITAL SIGNS WT 119 LBS, HT 53 IN, BMI 29.78 INDEX, BP 155/70 MM HG, HR 66 /MIN, RR 16 /MIN, TEMP 97.6 F, OXYGEN SAT % 98, REVIEWED BY: EM. EXAMINATION GENERAL EXAMINATION: GENERAL AWAKE,ALERT ,PLEASANT . PSYCH AFFECT NORMAL . LUNGS: LUNG TURNER ARE CLEAR TO AUSCULTATION BILATERALLY. GOOD MOVEMENT OF AIR . HEART: S1, S2 IN A REGULAR RATE AND RHYTHM. NO SIGNIFICANT MURMURS, RUBS OR GALLOPS NOTED . MUSCULOSKELETAL: MUSCLE STRENGTH TESTING 5/5 BILATERAL LOWER EXTREMITIES. FOR BILAT. SIJ TRIGGER POINTS:, ELICITED WITH PALPATION OVER LUMBAR PARAVERTEBRAL MUSCLES AND RESTRICTION OF ROM IN THIS AREA. DIAGNOSTIC TESTS REVIEWED MRI L/S SPINE-01/27/19. ASSESSMENTS MYALGIA, OTHER SITE - M79.18 (PRIMARY) TREATMENT MYALGIA, OTHER SITE NOTES: TPI BILAT. LOW BACK NO STEROIDSPT 2XWK X6WKS LOW BACK PAIN/BILATERAL SACROILLITIS. PREVENTIVE MEDICINE PAIN CLINIC TEACHING: PROCEDURE TEACHING REVIEWED INFORMATION ON TRIGGER POINT INJECTION PROCEDURE WITH PATIENT. ALSO REVIEWED PRE-PROCEDURE INSTRUCTIONS. PATIENT VERBALIZED AN UNDERSTANDING. YARELI MAX 05/01/2019 3:13:38 PM > . PROCEDURE CODES FA211 ESTABILISHED PATIENT [facility] CHARGE DISPOSITION & COMMUNICATION FOLLOW UP POST (REASON: TPI BILAT. LOW BACK NO STEROIDS) ELECTRONICALLY SIGNED BY DALTON CORBIN ON 05/11/2019 AT 02:54 PM EST DISCLAIMER : THIS IS A VISIT SUMMARY EXTRACTED FROM THE [employer] CHART. IT IS NOT A COPY OF THE [employer] PROGRESS NOTE. LIBERTY
== END ==
LOC: M PAIN 10:15
PROVIDERS: ATTEND Nurse Practitioner Family
DX: M79.18 Myalgia, other site (principal)

== ENCOUNTER → 2019-05-16 | Outpatient (RCR) | payer MEDICARE | LOC: M PT 05-08 10:51 | PROVIDERS: ATTEND Nurse Practitioner Family | DX: M79.18 Myalgia, other site (principal) ==

== ENCOUNTER 2019-05-25 12:40 | Day surgery (SDC) | payer MEDICARE ==
[~2019-05-25] VITALS: Ht 157.5 cm; Wt 53.3 kg
[~2019-05-25 12:40] MED LIST changes: +ASPI325T57 PO; +LIDOCAINE 1% MDV 20ML VIAL SQ PRN; +LR 1,000 ML IV ONE
[2019-05-25] MEDS ORDERED: DOXY1CAP60 PO (13:11)
[2019-05-25] MEDS ORDERED: propofoL 200 MG/20 ML VIAL As Ordered ONE ×2 (15:12→16:31)
[2019-05-25] MEDS ORDERED: LIDOCAINE 2% INJ 100 MG/5 ML SDV (FOR ANES.) As Ordered ONE (15:12)
[2019-05-25] MEDS ORDERED: ONDANSETRON 4MG/2ML VIAL (J2405) As Ordered ONE (15:12)
[2019-05-25] MEDS ORDERED: fentaNYL 100 MCG/2 ML INJECTION (J3010) As Ordered ONE (15:12)
[2019-05-25] MEDS ORDERED: LIDOCAINE 1% SDV INJ 30 ML VIAL As Ordered ONE (16:05)
[2019-05-25 17:12] VITALS: BP 137/65
--- NOTE | 2019-05-26 00:38 | RO ---
DATE OF PROCEDURE: 05/25/2019 PREOPERATIVE DIAGNOSIS: Right Bartholin's lesion, either abscess or other more significant lesion. POSTOPERATIVE DIAGNOSIS: Right Bartholin's lesion, either abscess or other more significant lesion. PROCEDURE: Excision of the right labial lesion; we tried to remove the whole Bartholin's gland. SURGEON: Dr. Sharri Mcrae CARAMEL CANDY MAKER: None. ANESTHESIA: Monitored anesthesia care (MAC) and local. DESCRIPTION OF PROCEDURE: Kate was brought to the operating room. She had an ulcer in the right labia over a palpable lump within the labia, and she had had some pustulant drainage but without cellulitis around it, so she was counseled for removal. The area was numbed with local and, of course, she was given MAC and prepped and draped in the normal fashion. We then excised the right Bartholin's gland. There appears to be a portion of it that feels like a solid lesion. Of course, it is possible that this is induration from the infection and the ulcer, but it feels like there is a portion that has a solid lesion within it. There was not a significant amount of undue bleeding. We were able to shell around this palpable area, and we did take some of the skin around the ulcer because it too was indurated and really could not feel that separately, so we went ahead and just removed it. Then, did a deep layered closure with #3-0 Vicryl and a skin closure with #3-0 Vicryl, and, of course, had good hemostasis at the end and, of course, did not dress this lesion - it is in the labia. The lesion itself will be sent for pathologic evaluation. Estimated blood loss: Maybe 2 mL. Fluid replacement was crystalloid. Complications: None. Condition and Disposition: Kate tolerated the procedure well and was recovering in the recovery room in good condition.
== END 2019-05-25 17:30 | disposition home or self-care (01) ==
LOC: M SDC 12:40
PROVIDERS: ATTEND Obstetrics & Gynecology
DX: N75.0 Cyst of Bartholin's gland (principal); N76.6 Ulceration of vulva; E11.9 Type 2 diabetes mellitus without complications; I11.9 Hypertensive heart disease without heart failure; I25.118 Atherosclerotic heart disease of native coronary artery with other forms of angina pectoris; M19.90 Unspecified osteoarthritis, unspecified site; M81.0 Age-related osteoporosis without current pathological fracture; J44.9 Chronic obstructive pulmonary disease, unspecified; E78.5 Hyperlipidemia, unspecified; Z88.1 Allergy status to other antibiotic agents; Z88.8 Allergy status to other drugs, medicaments and biological substances; Z87.891 Personal history of nicotine dependence; Z79.899 Other long term (current) drug therapy; Z79.82 Long term (current) use of aspirin; Z79.891 Long term (current) use of opiate analgesic; N28.89 Other specified disorders of kidney and ureter
CPT/HCPCS: 56740; 88304; J2405; J3010

== ENCOUNTER → 2019-05-29 | Outpatient (CLI) | payer MEDICARE ==
[~2019-05-29] MED LIST changes: +DOXY1CAP60 PO; +FUROSEMIDE 20 MG/2 ML VIAL (J1940) As Ordered ONE; -LIDOCAINE 1% MDV 20ML VIAL SQ PRN; -LR 1,000 ML IV ONE
--- NOTE | 2019-05-29 14:16 | REP ---
NUCLEAR RENAL SCINTIGRAPHY WITH DIFFERENTIAL FLOW AND FUNCTION ANALYSIS. POST LASIX RADIOGRAPHY: HISTORY: Hydronephrosis. The patient is 12 weeks status post endopyelotomy on the left. Comparison renal sonography is from February 01, 2019. Comparison CT study, January 27, 2019. TECHNIQUE: 8.0 mCi technetium 99m MAG-3 is injected, and standard posterior flow and excretory phase images are acquired. Renal cortical regions of interest are drawn, and time activity curves are plotted for renal function analysis. 20 mg of intravenous Lasix is administered, and post-Lasix venography is carried out. SCINTIGRAPHIC FINDINGS: The posterior flow study shows slightly delayed perfusion of the left kidney compared to the right. Excretory phase images demonstrate no evidence of intrarenal mass on either side. There is delayed labeling of the dilated intrarenal collecting system of the left kidney compared to the right. There is mild fullness of the right renal pelvis. Pre-Lasix pre- and postvoid images show hydronephrosis on the left. The left ureter is labeled distally on these. Differential function analysis shows 33% of overall renal cortical counts coming from the left kidney and 67% from the right. Obvg-to-tdre activity is 3.0 minutes bilaterally. Time to half-max activity is delayed bilaterally, greater than 30 minutes on the left and 17.1 minutes on the right. Post-Lasix washout renography demonstrates a flat washout curve on the left. Time to half Lasix activity on the right is 23.2 minutes. IMPRESSION: Findings consistent with obstructive uropathy on the left. Lack of Lasix washout. Delayed perfusion and impaired function, left greater than right. Electronically Signed by Vincent Mendoza MD 05/29/2019 02:51 P
== END ==
LOC: M RAD 09:34
PROVIDERS: ATTEND Specialist
DX: N13.0 Hydronephrosis with ureteropelvic junction obstruction (principal)
CPT/HCPCS: 78708; A9562; J1940

== ENCOUNTER → 2019-11-14 | Outpatient (CLI) | payer MEDICARE ==
[~2019-11-14] MED LIST changes: -FUROSEMIDE 20 MG/2 ML VIAL (J1940) As Ordered ONE
--- NOTE | 2019-11-17 02:37 | ECWPNPC ---
PATIENT NAME: AGUILAR MORENO : 1935 GENDER: FEMALE VISIT DATE: 11/14/2019 DISCHARGE DATE: 11/14/19 09 VISIT LOCKED DATE TIME: PHYSICIAN: TIAN NANCE RESOURCE: TIAN NANCE REASON FOR APPOINTMENT 1. LOW BACK HISTORY OF PRESENT ILLNESS GENERAL: HERE FOR FOLLOW-UP OF CHRONIC LOW BACK PAIN. PAIN HAS INCREASED OVER THE PAST FEW MONTHS. HAS ATTENDED PHYSICAL THERAPY WITH SOME AGGRAVATION IN PAIN. RESPONDED WELL TO BILATERAL SACROILIAC JOINT BLOCKS IN THE PAST BUT STEROID RAISED HER BLOOD SUGAR FOR SEVERAL MONTHS. CURRENTLY BEING WORKED UP FOR CHRONIC DIARRHEA WITH OCCASIONAL BOWEL INCONTINENCE. REVIEWED MRI OF THE LS-SPINE AND DISCUSS TREATMENT PLAN. -. FALL RISK SCREENING: SCREENING :NO FALLS REPORTED IN THE LAST YEAR PAIN SCREENING: PATIENT HAS A COMPLAINT OF ACUTE OR CHRONIC PAIN :YES LOCATION OF PAIN:LOW BACK INTENSITY OF PAIN (SCALE OF 1 TO 10):5 WHAT DOES YOUR PAIN FEEL LIKE:ACHING, CONTINOUS DURATION:STEADY PAIN IS INCREASED BY:ACTIVITIES PAIN IS DECREASED BY:OTHERS NURSING NOTE: - PT IS SEEING A NEW PHYSICIAN TO LOOK INTO LACK OF BOWEL CONTROL. PAIN CENTER INTAKE QUESTIONS: DO YOU HAVE A HISTORY OF MRSA? :NO DO YOU TAKE A BLOOD THINNERS? :NO DO YOU HAVE ANY BLEEDING DISORDERS? :NO ANY NEW NUMBNESS OR WEAKNESS IN YOUR LEGS OR ARMS? :NO ANY PACEMAKER,DEFIBRILLATOR, OR DORSAL COLUMN STIMULATOR? :NO DO YOU HAVE ANY RASHES OR OPEN SORES? :NO ARE YOU ALLERGIC TO IV DYE? :NO ARE YOU DIABETIC? :NO ANY NEW PROBLEMS WITH YOUR MEDICATIONS? :NO HAVE YOU RECEIVED A VACCINE IN THE PAST 30 DAYS? :NO DO YOU PLAN TO RECEIVE A VACCINE IN THE NEXT 21 DAYS? :NO DO YOU NEED ANY PRESCRIPTION? :NO DO YOU TAKE ANY IMMUNOSUPPRESSIVE MEDICATIONS? :NO IS THERE A CHANCE YOU COULD BE ? :NO ARE YOU BREAST FEEDING? :NO CURRENT MEDICATIONS TAKING TYLENOL WITH CODEINE #3 300-30 MG TABLET 1 TABLET NEEDED ORALLY EVERY 6 HRS, NOTES: ON OCCASION TAKING ATENOLOL 25 MG TABLET 1 TABLET ORALLY ONCE A DAY TAKING ATORVASTATIN CALCIUM 20 MG TABLET 1 TABLET ORALLY QOD TAKING NORVASC 10MG TABLET ORAL TAKING COENZYME Q10 - CAPSULE DIRECTED ORALLY TAKING METAMUCIL , NOTES: DAILY NOT-TAKING AMLODIPINE BESYLATE 10 MG TABLET 1 TABLET ORALLY ONCE A DAY UNKNOWN OMEPRAZOLE 40 MG CAPSULE DELAYED RELEASE 1 CAPSULE 30 MINUTES BEFORE MORNING MEAL ORALLY ONCE A DAY MEDICATION LIST REVIEWED AND RECONCILED WITH THE PATIENT PAST MEDICAL HISTORY HTN HYPERLIPIDEMIA ARTHRITIC LBP SEPSIS ALLERGIES N.K.D.A. SURGICAL HISTORY HYSTRECTOMY LEFT PNEUMONECTOMY BLADDER SUSPENSION T&A KIDNEY STENT PLACED AND REMOVED FAMILY HISTORY FATHER: MOTHER: 1 BROTHER(S) - HEALTHY. 2 SON(S) , 3 DAUGHTER(S) - HEALTHY. MOTHER STROKE. SOCIAL HISTORY GENERAL: TOBACCO USE ARE YOU A:FORMER SMOKER HOW LONG HAS IT BEEN SINCE YOU LAST SMOKED?> 10 YEARS [id number] LANGUAGE LANGUAGES SPOKEN:GREEK LEARNING BARRIERS / SPECIAL NEEDS BARRIERS TO LEARNING?NO HEARING IMPAIRED?NO VISION IMPAIRED?NO COGNITIVELY IMPAIRED?NO READINESS TO LEARN?YES LEARNING PREFERENCES?NO LEARNING CAPABILITIES PRESENT?YES EMOTIONAL BARRIERS?NO SPECIAL DEVICES?NO PAIN CLINIC PFS, CLERGY, PUBLIC HEALTH REFERRALS HAS THE PATIENT BEEN EDUCATED REGARDING HIS/HER PLAN OF CARE?YES HAS THE PATIENT BEEN EDUCATED REGARDING PAIN, THE RISK FOR PAIN, THE IMPORTANCE OF EFFECTIVE PAIN MANAGEMENT, AND THE PAIN ASSESSMENT PROCESS?YES ADVANCE DIRECTIVE ADVANCE DIRECTIVE DISCUSSED WITH PATIENT:YES JENNA MORENO SON [phone] HOSPITALIZATION/MAJOR DIAGNOSTIC PROCEDURE FLANK PAIN 01/2019 SURGERIES SEPSIS 2018 REVIEW OF SYSTEMS CONSTITUTIONAL: ANY RECENT FEVER NO . CHILLS NO . WEIGHT CHANGE OF UNKNOWN REASONS NO . GASTROENTEROLOGY: NEW UNEXPLAINABLE CHANGES IN BOWEL CONTROL NO . CONSTIPATION NO . GENITOURINARY: ANY NEW CHANGE IN BLADDER CONTROL? NO . NEUROLOGY: NEW ONSET DIZZINESS OR NEUROLOGICAL CHANGES NOT MENTIONED NO . NEW NUMBNESS OR PAIN PATTERNS NOT MENTIONED AND PERTINENT TO TODAY'S VISIT NO . CARDIOLOGY: NEW CHEST PRESSURE NO . NEW CHEST PAIN NO . RESPIRATORY: UNEXPLAINABLE COUGH NO . NEW SHORTNESS OF BREATH NO . VITAL SIGNS WT 212.8 LBS, HT 53 IN, BMI 53.26 INDEX, BP 139/64 MM HG, HR 67 /MIN, RR 18 /MIN, TEMP 97.8 F, OXYGEN SAT % 98%, SAFE IN ENV? (Y/N) Y, NA INITIALS AW 0904, REVIEWED BY: KG. EXAMINATION GENERAL EXAMINATION: LUNGS: LUNG SOUNDS ARE CLEAR . HEART: HEART RATE REGULAR . MUSCULOSKELETAL:*, MUSCLE STRENGTH TESTING 5/5 BILATERAL LOWER EXTREMITIES., ,PALPATION: POSITIVE FOR PAIN OVER L/S SPINE. POSITIVE FOR PAIN OVER L/S PARSPINALS.SPECIFIC POINT TENDERNESS OVER BILAT L4/5-L5/S1 LUMBR FACETS WITH FACET LOADING . DIAGNOSTIC TESTS REVIEWEDMRI L/S SPINE . DIAGNOSTIC:MRI L/S SPINE . 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 I THINK SHE WILL BENEFIT FROM THIS PROCEDURE AFTER REVIEWING HER MRI AND LISTENING TO HER COMPLAINTS. FOLLOW-UP POSTPROCEDURE TO REVIEW HOURLY PAIN DIARY. PREVENTIVE MEDICINE PAIN CLINIC TEACHING: PROCEDURE TEACHING WENT OVER PROCEDURE TEACHING INCLUDING PRE PROCEDURE INSTRUCTIONS INFORMED THE PT SHE NEEDS TO HAVE A PAIN SCORE NUMBER OF 8 OR ABOVE PRIOR TO PROCEDURE. PROCEDURE CODES FA211 ESTABILISHED PATIENT [facility] CHARGE DISPOSITION & COMMUNICATION FOLLOW UP POST PROCEDURE (REASON: L45, L5-S1 BILATERAL DIAGNOSTIC LUMBAR FACET BLOCK) ELECTRONICALLY SIGNED BY DALTON CORBIN ON 11/16/2019 AT 02:42 PM EDT DISCLAIMER : THIS IS A VISIT SUMMARY EXTRACTED FROM THE [employer] CHART. IT IS NOT A COPY OF THE [employer] PROGRESS NOTE. [employer]ERTY
== END ==
LOC: M PAIN 09:00
PROVIDERS: ATTEND Nurse Practitioner Family
DX: M54.5 Low back pain (principal)

== ENCOUNTER → 2019-12-04 | Outpatient (CLI) | payer SELFPAY ==
[~2019-12-04] MED LIST changes: -AMLO10TA5 PO; +AMLO1TAB25 PO
== END ==
LOC: M LABSMTC 13:02
PROVIDERS: ATTEND Pediatrics
DX: Z20.828 Contact with and (suspected) exposure to other viral communicable diseases (principal); Z11.59 Encounter for screening for other viral diseases

== ENCOUNTER 2022-01-31 00:22 | Emergency (ER) | payer MEDICARE, OTHER, SELFPAY ==
[~2022-01-31] VITALS: Ht 160 cm; Wt 50.9 kg
[~2022-01-31 00:22] MED LIST changes: -ACET1TAB16 PO; +ACET300T48 PO; +BACTDSTA; +BACTDSTA PO; -DOXY1CAP60 PO; +DOXY50CA51 PO; +LOSA25TA13 PO; -LOSA25TA14 PO; +LOSA50TA28 PO; -LOSA50TA88 PO; +OMEP-173 PO; -OMEP-218 PO; -OMEP-221 PO; +OMEP40CA5 PO; -SULF1TAB93; -SULF1TAB93 PO
[2022-01-31 00:23] VITALS: BP 159/72
[2022-01-31] MEDS ORDERED: TIZA4CAP PO (00:31)
[2022-01-31] MEDS ORDERED: TRAM50TA2 PO (00:31)
[2022-01-31 01:14] LABS: BASO # 0.1 10^3/uL (0.0-0.2); BASO % 0.6 % (0.0-1.0); EOS # 0.2 10^3/uL (0.0-0.5); EOS % 2.3 % (0.0-3.0); HEMATOCRIT 38.8 % (36.0-47.0); HEMOGLOBIN 12.6 g/dl (12.0-15.5); LYMPH # 3.1 10^3/uL (1.5-5.0); LYMPH % 30.4 % (24.0-44.0); MEAN CORPUSCULAR HGB CONC 32.5 g/dl (32.0-36.5); MEAN CORPUSCULAR VOLUME 92.4 fl (80.0-96.0); MONO # 1.1 10^3/uL (0.0-0.8); MONO % 10.5 % (2.0-8.0); NEUTROPHILS # 5.7 10^3/uL (1.5-8.5); PLATELET COUNT, AUTOMATED 309 10^3/uL (150-450); WHITE BLOOD COUNT 10.1 10^3/uL (4.0-10.0)
[2022-01-31] MEDS ORDERED: NS 1,000 ML IV ONE ×2 (01:35→02:20)
[2022-01-31 01:52] LABS: CALCIUM LEVEL 9.1 MG/DL (8.8-10.2); CREATININE FOR GFR 1.1 MG/DL (0.55-1.30); POTASSIUM SERUM 3.7 MEQ/L (3.5-5.1)
[2022-01-31 01:53] LABS: ALBUMIN 3.9 GM/DL (3.2-5.2); BILIRUBIN,TOTAL 0.4 MG/DL (0.2-1.0)
[2022-01-31 01:55] LABS: CK-MB VALUE MASS 1.7 NG/ML (<3.6); MB/CK RELATIVE INDEX 1.7 (< OR =4)
[2022-01-31] MEDS ORDERED: ISOVUE-370 76% 100ML VIAL As Ordered ONE (02:31)
[2022-01-31 02:45] LABS: FREE T4 1.11 NG/DL (0.76-1.46); THYROID STIMULATING HORMONE 1.85 uIU/ML (0.358-3.740)
[2022-01-31 03:09] LABS: MB/CK RELATIVE INDEX 2.63 (< OR =4)
== END 2022-01-31 06:14 | disposition home or self-care (01) ==
LOC: M ED 00:22
DX: T88.7XXA Unspecified adverse effect of drug or medicament, initial encounter (principal); R55 Syncope and collapse; R94.31 Abnormal electrocardiogram [ECG] [EKG]; J44.9 Chronic obstructive pulmonary disease, unspecified; M51.34 Other intervertebral disc degeneration, thoracic region; M48.04 Spinal stenosis, thoracic region; R91.8 Other nonspecific abnormal finding of lung field; I10 Essential (primary) hypertension; K21.9 Gastro-esophageal reflux disease without esophagitis; Z90.710 Acquired absence of both cervix and uterus; Z88.1 Allergy status to other antibiotic agents; Z88.8 Allergy status to other drugs, medicaments and biological substances; Z79.899 Other long term (current) drug therapy
CPT/HCPCS: 71045; 71275; 80053; 82550; 82553; 84439; 84443; 84484; 85025; 85379; 87486; 87581; 87633; 87798; 93005; 96360; 96361; 99284; Q9967

== ENCOUNTER → 2022-03-06 | Outpatient (CLI) | payer MEDICARE ==
[~2022-03-06] MED LIST changes: +TIZA4CAP PO; +TRAM50TA2 PO
[2022-03-06 17:24] LABS: PLATELET COUNT, AUTOMATED 317 10^3/uL (150-450)
[2022-03-06 17:40] LABS: PROTHROMBIN TIME 13.4 SECONDS (12.5-14.5)
[2022-03-06 17:41] LABS: PARTIAL THROMBOPLASTIN TIME 32.4 SECONDS (24.8-34.2)
== END ==
LOC: M WUC 11:09
PROVIDERS: ATTEND Physician Assistant
DX: M48.061 Spinal stenosis, lumbar region without neurogenic claudication (principal)

== ENCOUNTER → 2022-06-03 | Outpatient (CLI) | payer MEDICARE ==
[2022-06-03 14:32] LABS: BLOOD UREA NITROGEN 21 MG/DL (9-23); CREATININE FOR GFR 0.93 MG/DL (0.55-1.30); GLOMERULAR FILTRATION RATE > 60.0 (>32)
== END ==
LOC: M LAB 13:05
PROVIDERS: ATTEND Otolaryngology
DX: H91.93 Unspecified hearing loss, bilateral (principal)

== ENCOUNTER → 2022-06-04 | Outpatient (CLI) | payer MEDICARE ==
[~2022-06-04] MED LIST changes: +PROHANCE 279.3MG/ML 15ML VIAL As Ordered ONE
== END ==
LOC: M RAD 13:42
PROVIDERS: ATTEND Otolaryngology
DX: H91.93 Unspecified hearing loss, bilateral (principal); R90.82 White matter disease, unspecified; I63.81 Other cerebral infarction due to occlusion or stenosis of small artery; I67.82 Cerebral ischemia
CPT/HCPCS: 70553; A9576

== ENCOUNTER → 2022-07-31 | Outpatient (CLI) | payer MEDICARE ==
[~2022-07-31] MED LIST changes: -PROHANCE 279.3MG/ML 15ML VIAL As Ordered ONE
[2022-07-31 17:16] LABS: BASO # 0.1 10^3/uL (0.0-0.2); BASO % 0.9 % (0.0-1.0); EOS # 0.5 10^3/uL (0.0-0.5); EOS % 4.6 % (0.0-3.0); HEMATOCRIT 39.4 % (36.0-47.0); HEMOGLOBIN 12.1 g/dl (12.0-15.5); LYMPH # 3.3 10^3/uL (1.5-5.0); MEAN CORPUSCULAR HGB CONC 30.7 g/dl (32.0-36.5); MEAN CORPUSCULAR VOLUME 97.8 fl (80.0-96.0); MONO # 0.9 10^3/uL (0.0-0.8); MONO % 8.5 % (2.0-8.0); NEUTROPHILS # 6.1 10^3/uL (1.5-8.5); NEUTROPHILS % 55.6 % (36.0-66.0); PLATELET COUNT, AUTOMATED 316 10^3/uL (150-450); RED BLOOD COUNT 4.03 10^6/uL (4.00-5.40); WHITE BLOOD COUNT 10.9 10^3/uL (4.0-10.0)
[2022-07-31 18:23] LABS: ALBUMIN 4.1 G/DL (3.2-5.2); ALKALINE PHOSPHATASE 59 U/L (46-116); ALT/SGPT 15 U/L (7.0-40); AST/SGOT 18 U/L (<34); BILIRUBIN,TOTAL 0.6 MG/DL (0.3-1.2); BLOOD UREA NITROGEN 15 MG/DL (9-23); CALCIUM LEVEL 9.6 MG/DL (8.3-10.6); CARBON DIOXIDE LEVEL 29 MMOL/L (20-31); CHLORIDE LEVEL 104 MMOL/L (98-107); CHOLESTEROL LEVEL 184 MG/DL (<200); CHOLESTEROL RISK RATIO 3.56 (<5); CREATININE FOR GFR 0.76 MG/DL (0.55-1.30); GLOMERULAR FILTRATION RATE > 60.0 (>32); GLUCOSE, FASTING 109 MG/DL (74-106); HDL CHOLESTEROL 51.6 MG/DL (>40); LDL CHOLESTEROL 90.8 MG/DL (<100); NON-HDL-C 132.4 MG/DL; POTASSIUM SERUM 4.1 MMOL/L (3.5-5.1); SODIUM LEVEL 141 MMOL/L (136-145); TOTAL PROTEIN 6.7 G/DL (5.7-8.2); TRIGLYCERIDES LEVEL 208 MG/DL (<150)
[2022-08-03 23:07] LABS: ANA (HEP2) Negative (.); CYCLIC CITRULLINATED PEPTIDE 3 units (0-19)
== END ==
LOC: M WUC 09:35
PROVIDERS: ATTEND Family Medicine
DX: I10 Essential (primary) hypertension (principal); M15.0 Primary generalized (osteo)arthritis; E78.5 Hyperlipidemia, unspecified; G31.84 Mild cognitive impairment of uncertain or unknown etiology

== ENCOUNTER → 2022-11-04 | Outpatient (CLI) | payer MEDICARE ==
[2022-11-04 17:26] LABS: HEMATOCRIT 39.3 % (36.0-47.0); HEMOGLOBIN 12.5 g/dl (12.0-15.5); MEAN CORPUSCULAR HEMOGLOBIN 29.6 pg (27.0-33.0); MEAN CORPUSCULAR HGB CONC 31.8 g/dl (32.0-36.5); MEAN CORPUSCULAR VOLUME 93.1 fl (80.0-96.0); PLATELET COUNT, AUTOMATED 248 10^3/uL (150-450); RED BLOOD COUNT 4.22 10^6/uL (4.00-5.40); WHITE BLOOD COUNT 7.7 10^3/uL (4.0-10.0)
[2022-11-04 17:55] LABS: ALKALINE PHOSPHATASE 61 U/L (46-116); ALT/SGPT 10 U/L (7.0-40); AST/SGOT 12 U/L (<34); BILIRUBIN,TOTAL 0.4 MG/DL (0.3-1.2); BLOOD UREA NITROGEN 21 MG/DL (9-23); CALCIUM LEVEL 10.3 MG/DL (8.3-10.6); CARBON DIOXIDE LEVEL 26 MMOL/L (20-31); CHLORIDE LEVEL 105 MMOL/L (98-107); CHOLESTEROL LEVEL 215 MG/DL (<200); CHOLESTEROL RISK RATIO 3.98 (<5); CREATININE FOR GFR 0.88 MG/DL (0.55-1.30); GLOMERULAR FILTRATION RATE > 60.0 (>32); GLUCOSE, FASTING 99 MG/DL (74-106); LDL CHOLESTEROL 135.6 MG/DL (<100); POTASSIUM SERUM 4.1 MMOL/L (3.5-5.1); SODIUM LEVEL 139 MMOL/L (136-145); TOTAL PROTEIN 6.7 G/DL (5.7-8.2); TRIGLYCERIDES LEVEL 127 MG/DL (<150)
== END ==
LOC: M WUC 12:16
PROVIDERS: ATTEND Family Medicine
DX: I10 Essential (primary) hypertension (principal); I25.118 Atherosclerotic heart disease of native coronary artery with other forms of angina pectoris; E78.5 Hyperlipidemia, unspecified; R07.89 Other chest pain

== ENCOUNTER → 2022-11-26 | Outpatient (CLI) | payer MEDICARE ==
[2022-11-26 17:17] LABS: BASO # 0.1 10^3/uL (0.0-0.2); BASO % 0.7 % (0.0-1.0); EOS # 0.9 10^3/uL (0.0-0.5); EOS % 8.5 % (0.0-3.0); HEMATOCRIT 39.5 % (36.0-47.0); HEMOGLOBIN 12.3 g/dl (12.0-15.5); LYMPH # 2.6 10^3/uL (1.5-5.0); LYMPH % 24.7 % (24.0-44.0); MEAN CORPUSCULAR HEMOGLOBIN 29.1 pg (27.0-33.0); MEAN CORPUSCULAR HGB CONC 31.1 g/dl (32.0-36.5); MEAN CORPUSCULAR VOLUME 93.6 fl (80.0-96.0); MONO # 0.9 10^3/uL (0.0-0.8); MONO % 8.5 % (2.0-8.0); NEUTROPHILS # 6.1 10^3/uL (1.5-8.5); NEUTROPHILS % 57.3 % (36.0-66.0); PLATELET COUNT, AUTOMATED 309 10^3/uL (150-450); RED BLOOD COUNT 4.22 10^6/uL (4.00-5.40); WHITE BLOOD COUNT 10.7 10^3/uL (4.0-10.0)
[2022-11-26 17:44] LABS: ALBUMIN 3.9 G/DL (3.2-5.2); ALKALINE PHOSPHATASE 64 U/L (46-116); ALT/SGPT 12 U/L (7.0-40); AST/SGOT 9 U/L (<34); BILIRUBIN,DIRECT 0.2 MG/DL (<0.4); BILIRUBIN,TOTAL 0.5 MG/DL (0.3-1.2); BLOOD UREA NITROGEN 16 MG/DL (9-23); CALCIUM LEVEL 10.2 MG/DL (8.3-10.6); CARBON DIOXIDE LEVEL 28 MMOL/L (20-31); CHLORIDE LEVEL 102 MMOL/L (98-107); CREATININE FOR GFR 0.81 MG/DL (0.55-1.30); GLOMERULAR FILTRATION RATE > 60.0 (>32); GLUCOSE, FASTING 96 MG/DL (74-106); POTASSIUM SERUM 4.1 MMOL/L (3.5-5.1); SODIUM LEVEL 139 MMOL/L (136-145); TOTAL PROTEIN 6.7 G/DL (5.7-8.2)
== END ==
LOC: M WUC 12:12
PROVIDERS: ATTEND Family Medicine
DX: K80.51 Calculus of bile duct without cholangitis or cholecystitis with obstruction (principal)

== ENCOUNTER 2022-12-11 20:30 | Emergency (ER) | payer MEDICARE ==
[~2022-12-11] VITALS: Ht 157.5 cm; Wt 49.6 kg
[2022-12-11 21:57] LABS: BASO # 0.1 10^3/uL (0.0-0.2); BASO % 0.8 % (0.0-1.0); EOS # 0.4 10^3/uL (0.0-0.5); EOS % 3.2 % (0.0-3.0); HEMATOCRIT 36.2 % (36.0-47.0); HEMOGLOBIN 11.8 g/dl (12.0-15.5); LYMPH # 1.5 10^3/uL (1.5-5.0); LYMPH % 12.5 % (24.0-44.0); MEAN CORPUSCULAR HEMOGLOBIN 29.7 pg (27.0-33.0); MEAN CORPUSCULAR HGB CONC 32.6 g/dl (32.0-36.5); MEAN CORPUSCULAR VOLUME 91.2 fl (80.0-96.0); MONO # 0.7 10^3/uL (0.0-0.8); MONO % 5.7 % (2.0-8.0); NEUTROPHILS % 77.4 % (36.0-66.0); PLATELET COUNT, AUTOMATED 294 10^3/uL (150-450); RED BLOOD COUNT 3.97 10^6/uL (4.00-5.40); WHITE BLOOD COUNT 11.6 10^3/uL (4.0-10.0)
[2022-12-11 22:22] LABS: BILIRUBIN,DIRECT 0.1 MG/DL (<0.4); BILIRUBIN,TOTAL 0.3 MG/DL (0.3-1.2); TOTAL PROTEIN 6.7 G/DL (5.7-8.2)
[2022-12-11 23:26] VITALS: TEMP 98.2
[2022-12-12] MEDS ORDERED: ISOVUE-370 76% 100ML VIAL As Ordered ONE (00:13)
[2022-12-12] MEDS ORDERED: ONDA4TAB6 PO (01:32)
[2022-12-12 01:49] VITALS: BP 150/84; O2SAT 95
== END 2022-12-12 01:50 | disposition home or self-care (01) ==
LOC: M ED 20:30 → EDBD 20:30 → M ED 12-12 01:50
DX: R11.10 Vomiting, unspecified (principal); B34.8 Other viral infections of unspecified site; I10 Essential (primary) hypertension; Z87.442 Personal history of urinary calculi; K57.30 Diverticulosis of large intestine without perforation or abscess without bleeding; K86.2 Cyst of pancreas; M48.061 Spinal stenosis, lumbar region without neurogenic claudication; Z79.899 Other long term (current) drug therapy; Z88.0 Allergy status to penicillin; Z88.1 Allergy status to other antibiotic agents; Z88.8 Allergy status to other drugs, medicaments and biological substances
CPT/HCPCS: 74177; 80076; 81001; 83690; 85025; 87486; 87581; 87633; 87798; 99284; Q9967

== ENCOUNTER → 2023-09-10 | Outpatient (REF) | payer MEDICARE ==
[~2023-09-10] MED LIST changes: +ONDA4TAB6 PO
[2023-09-10 16:17] LABS: PLATELET COUNT, AUTOMATED 246 10^3/uL (150-450)
[2023-09-10 16:29] LABS: COLLAGEN EPINEPHRINE 171 SECONDS (74-162)
[2023-09-10 16:36] LABS: COLLAGEN ADP 72 SECONDS (56-103)
[2023-09-10 16:50] LABS: INR 1.06; PARTIAL THROMBOPLASTIN TIME 31.7 SECONDS (24.8-34.2); PROTHROMBIN TIME 13.5 SECONDS (12.5-14.5)
== END ==
LOC: M LABWUC 16:10
PROVIDERS: ATTEND Physician Assistant Surgical
DX: Z01.818 Encounter for other preprocedural examination (principal)